=== PATIENT | male | born 1970 | race Caucasian/White ===

== ENCOUNTER 2023-08-12 12:01 | Inpatient (IN) | payer OTHER ==
--- NOTE | 2023-08-12 12:54 | ED ---
Lower Extremity Injury HPI - General Chief Complaint: Extremity Injury, Lower Stated Complaint: swelling-legs/groin Time Seen by Provider: 08/12/23 12:21 Source: patient, RN notes reviewed, old records reviewed Mode of arrival: ambulatory Limitations: no limitations - History of Present Illness Initial Comments: This is a 53-year-old male to the emergency department today for evaluation today. Patient Dese for evaluation regards to severe lower extremity edema swelling patient states that his scrotum is significantly swollen his abdomen is swollen arms are swollen. He states he symptoms are just been occurring for a few weeks now he does see his primary care doctor regularly and was told that his last lab testing was all normal. Patient denies any recent episodes of severe chest pain or shortness of breath but he does have exertional shortness of breath. Patient has remote history of smoking. But is no medical history takes no medications MD Complaint: other (bilateral lower Shorty swelling significant) - Related Data Home Medications Medication Instructions Recorded Confirmed Furosemide [Lasix] 20 mg PO DIRECTED 08/12/23 08/12/23 Previous Rx's Medication Instructions Recorded Albuterol Inhaler [Ventolin Hfa 2 puff INHALATION RT-QID PRN #1 12/24/22 Inhaler] each Sacubitril/Valsartan [Entresto 24 1 each PO BID #60 tablet 08/14/23 mg-26 mg Tablet] Cephalexin [Keflex] 500 mg PO Q8HR #21 cap 08/17/23 Furosemide [Lasix] 80 mg PO BID@0900,1600 #120 tab 08/17/23 Gabapentin [Neurontin] 300 mg PO HS #30 cap 08/17/23 SILVER sulfADIAZINE CREAM 1 applic TOPICAL BID each 08/17/23 [Silvadene Cream] Spironolactone [Aldactone] 25 mg PO DAILY #30 tab 08/17/23 carvediloL [Coreg] 6.25 mg PO BID-W/MEALS #60 tab 08/17/23 Allergies Allergy/AdvReac Type Severity Reaction Status Date / Time No Known Allergies Allergy Verified 08/12/23 12:14 Review of Systems ROS Statement: Those systems with pertinent positive or pertinent negative responses have been documented in the HPI. ROS Other: All systems not noted in ROS Statement are negative. Past Medical History Past Medical History: Hypertension, No Reported History History of Any Multi-Drug Resistant Organisms: None Reported Past Surgical History: Orthopedic Surgery Past Anesthesia/Blood Transfusion Reactions: No Reported Reaction Past Psychological History: No Psychological Hx Reported Smoking Status: Never smoker Past Alcohol Use History: None Reported Past Drug Use History: None Reported - Past Family History Father Additional Family Medical History / Comment(s): healthy, from head injury Mother Family Medical History: AFIB, COPD, Hypertension Additional Family Medical History / Comment(s): smoker General Exam Limitations: no limitations General appearance: alert, in no apparent distress, anxious Head exam: Present: atraumatic, normocephalic, normal inspection Eye exam: Present: normal appearance, PERRL, EOMI. Absent: scleral icterus, conjunctival injection, periorbital swelling ENT exam: Present: normal exam, mucous membranes moist Neck exam: Present: normal inspection. Absent: tenderness, meningismus, lymphadenopathy Respiratory exam: Present: normal lung sounds bilaterally. Absent: respiratory distress, wheezes, rales, rhonchi, stridor Cardiovascular Exam: Present: normal rhythm, tachycardia, normal heart sounds. Absent: systolic murmur, diastolic murmur, rubs, gallop, clicks GI/Abdominal exam: Present: soft, normal bowel sounds. Absent: distended, ten derness, guarding, rebound, rigid Extremities exam: Present: tenderness, normal capillary refill, pedal edema, calf tenderness, other (Lower extremity edema bilateral). Absent: joint swelling Back exam: Present: normal inspection Neurological exam: Present: alert, oriented X3, CN II-XII intact Psychiatric exam: Present: normal affect, normal mood Skin exam: Present: warm, dry, intact, normal color. Absent: rash Course Vital Signs 08/12/23 08/12/23 08/12/23 12:14 14:48 18:04 Temperature 98.9 F 97.6 F 98.3 F Pulse Rate 105 H 92 98 Pulse Rate [ Left] Respiratory 16 18 18 Rate Blood Pressure 160/90 165/121 146/99 Blood Pressure [Left Arm] O2 Sat by Pulse 95 96 98 Oximetry 08/12/23 08/12/23 08/12/23 18:45 19:47 21:14 Temperature 97.8 F Pulse Rate 101 H 102 H 96 Pulse Rate [ Left] Respiratory 18 19 19 Rate Blood Pressure 158/97 174/119 Blood Pressure [Left Arm] O2 Sat by Pulse 91 L Oximetry 08/13/23 08/13/23 08/13/23 03:41 05:16 06:14 Temperature Pulse Rate 92 78 84 Pulse Rate [ Left] Respiratory 19 19 19 Rate Blood Pressure 185/120 164/116 158/104 Blood Pressure [Left Arm] O2 Sat by Pulse 94 L 93 L 94 L Oximetry 08/13/23 08/13/23 08/13/23 11:06 11:10 13:15 Temperature 97.7 F 97.7 F Pulse Rate 78 80 92 Pulse Rate [ Left] Respiratory 20 22 Rate Blood Pressure 149/101 148/99 166/96 Blood Pressure [Left Arm] O2 Sat by Pulse 98 97 94 L Oximetry 08/13/23 08/13/23 08/13/23 15:00 15:16 15:53 Temperature 97.7 F 97.6 F Pulse Rate 84 Pulse Rate [ 87 Left] Respiratory 18 18 18 Rate Blood Pressure 164/102 Blood Pressure 162/109 [Left Arm] O2 Sat by Pulse 94 L 96 Oximetry - Reevaluation(s) Reevaluation #1: 08/12/23 15:13 Medical record is reviewed Reevaluation #2: 08/12/23 15:13 Patient symptoms are unchanged Reevaluation #3: 08/12/23 15:13 Patient informed results and questions answered Reevaluation #4: 08/12/23 15:14 Was pt. sent in by a medical professional or institution (, PA, COMMISSION SPECIALIST, urgent care, hospital, or long term...) When possible be specific @ -no Did you speak to anyone other than the patient for history (EMS, parent, family, police, friend...)? What history was obtained from this source @ -no Did you review nursing and triage notes (agree or disagree)? Why? @ -agree Are old charts reviewed (outside hosp., previous admission, EMS record, old EKG, old radiological studies, urgent care reports/EKG's, long term records)? Rep ort findings @ -yes Differential Diagnosis (chest pain, altered mental status, abdominal pain women, abdominal pain men, vaginal bleeding, weakness, fever, dyspnea, syncope, headache, dizziness, GI bleed, back pain, seizure, CVA, palpatations, mental health, musculoskeletal)? @ -prior EKG interpreted by me (3pts min.). @ -yes X-rays interpreted by me (1pt min.). @ -yes CT interpreted by me (1pt min.). @ -no U/S interpreted by me (1pt. min.). @ -no What testing was considered but not performed or refused? (CT, X-rays, U/S, labs)? Why? @ -none What meds were considered but not given or refused? Why? @ -none Did you discuss the management of the patient with other professionals (sarah altman i.e. , PA, COMMISSION SPECIALIST, lab, RT, psych nurse, social scientist, hand bindery assembly worker, teacher, geological technical officer, complex case manager)? Give summary @ -no Was smoking cessation discussed for >3mins.? @ -no Was critical care preformed (if so, how long)? @ -no Were there social determinants of health that impacted care today? How? (Homelessness, low income, unemployed, alcoholism, drug addiction, transportation, low edu. Level, literacy, decrease access to med. care, custodial, rehab)? @ -none Was there de-escalation of care discussed even if they declined (Discuss DNR or withdrawal of care, Hospice)? DNR status @ -no What co-morbidities impacted this encounter? (DM, HTN, Smoking, COPD, CAD, Cancer, CVA, ARF, Chemo, Hep., AIDS, mental health diagnosis, sleep apnea, morbid obesity)? @ -none Was patient admitted / discharged? Hospital course, mention meds given and route, prescriptions, significant lab abnormalities, going to OR and other pertinent info. @ - 53 male to the emergency department for evaluation patient presents today for evaluation of shortness of breath lower Shorty edema swelling and pain. Cam ordaz has bilateral extremity cellulitis significant CHF likely related to heartburn pulmonary edema. Admitted Undiagnosed new problem with uncertain prognosis? @ -no Drug Therapy requiring intensive monitoring for toxicity (Heparin, Nitro, Insulin, Cardizem)? @ -no Were any procedures done? @ -no Diagnosis/symptom? @ -CHF lower extremity edema pulmonary edema and cellulitis Acute, or Chronic, or Acute on Chronic? @ -Acute Uncomplicated (without systemic symptoms) or Complicated (systemic symptoms)? @ -Complicated Side effects of treatment? @ -no Exacerbation, Progression, or Severe Exacerbation? @ -exacerbation Poses a threat to life or bodily function? How? (Chest pain, USA, SD, pneumonia, PE, COPD, DKA, ARF, appy, cholecystitis, CVA, Diverticulitis, Homicidal, Suicidal, threat to staff... and all critical care pts) @ -no Reevaluation #5: 08/12/23 15:14 Differential Weakness: Hypoglycemia, shock, sepsis, hyponatremia, anemia, infection, SD, ETOH, adverse medicine reaction, overdose, stroke, this is not meant to be an all-inclusive list. Medical Decision Making - Medical Decision Making 53 male to the emergency department for evaluation patient presents today for evaluation of shortness of breath lower Shorty edema swelling and pain. Patient has bilateral extremity cellulitis significant CHF likely related to heartburn pulmonary edema. - Lab Data Result diagrams: 08/13/23 10:52 08/17/23 05:37 Lab Results 08/12/23 08/12/23 08/12/23 Range/Units 13:15 13:15 13:15 WBC 11.3 H (3.8-10.6) k/uL RBC 5.03 (4.30-5.90) m/uL Hgb 14.9 (13.0-17.5) gm/dL Hct 48.3 (39.0-53.0) % MCV 95.9 (80.0-100.0) fL MCH 29.6 (25.0-35.0) pg MCHC 30.8 L (31.0-37.0) g/dL RDW 16.1 H (11.5-15.5) % Plt Count 224 (150-450) k/uL MPV 8.8 Neutrophils % 83 % Lymphocytes % 9 % Monocytes % 4 % Eosinophils % 2 % Basophils % 0 % Neutrophils # 9.4 H (1.3-7.7) k/uL Lymphocytes # 1.0 (1.0-4.8) k/uL Monocytes # 0.5 (0-1.0) k/uL Eosinophils # 0.2 (0-0.7) k/uL Basophils # 0.0 (0-0.2) k/uL Hypochromasia Slight Anisocytosis Slight PT 11.0 (10.0-12.5) sec INR 1.0 (<1.2) APTT 24.4 (22.0-30.0) sec D-Dimer (<0.60) mg/L FEU Sodium 140 (137-145) mmol/L Potassium 4.9 (3.5-5.1) mmol/L Chloride 103 (98-107) mmol/L Carbon Dioxide 29 (22-30) mmol/L Anion Gap 8 mmol/L BUN 25 H (9-20) mg/dL Creatinine 1.01 (0.66-1.25) mg/dL Est GFR (CKD-EPI) (>=60) Est GFR (CKD-EPI)AfAm >90 (>60 ml/min/1.73 sqM) Est GFR (CKD-EPI)NonAf 84 (>60 ml/min/1.73 sqM) BUN/Creatinine Ratio (12.00-20.00) Ratio Glucose 111 H (74-99) mg/dL Estimated Ave Glu mg/dL mg/dL Hemoglobin A1c (<=6.0) % Calcium 8.9 (8.4-10.2) mg/dL Phosphorus 4.6 H (2.5-4.5) mg/dL Magnesium 2.2 (1.6-2.3) mg/dL Total Bilirubin 1.0 (0.2-1.3) mg/dL AST 59 (17-59) U/L ALT 49 (4-49) U/L Alkaline Phosphatase 87 (38-126) U/L Ammonia (<30) umol/L Troponin I (0.000-0.034) ng/mL NT-Pro-B Natriuret Pep 1760 pg/mL Total Protein 7.1 (6.3-8.2) g/dL Albumin 3.7 (3.5-5.0) g/dL Globulin (1.6-3.3) d/dL Albumin/Globulin Ratio (1.60-3.17) Ratio Lipase 60 (23-300) U/L TSH 1.460 (0.465-4.680) mIU/L Urine Color Urine Appearance (Clear) Urine pH (5.0-8.0) Ur Specific [place] (1.001-1.035) Urine Protein (Negative) Urine Glucose (UA) (Negative) Urine Ketones (Negative) Urine Blood (Negative) Urine Nitrite (Negative) Urine Bilirubin (Negative) Urine Urobilinogen (<2.0) mg/dL Ur Leukocyte Esterase (Negative) Urine RBC (0-5) /hpf Urine WBC (0-5) /hpf Ur Squamous Epith Cells (0-4) /hpf Urine Mucus (None) /hpf 08/12/23 08/12/23 08/12/23 Range/Units 13:15 13:15 16:48 WBC (3.8-10.6) k/uL RBC (4.30-5.90) m/uL Hgb (13.0-17.5) gm/dL Hct (39.0-53.0) % MCV (80.0-100.0) fL MCH (25.0-35.0) pg MCHC (31.0-37.0) g/dL RDW (11.5-15.5) % Plt Count (150-450) k/uL MPV Neutrophils % % Lymphocytes % % Monocytes % % Eosinophils % % Basophils % % Neutrophils # (1.3-7.7) k/uL Lymphocytes # (1.0-4.8) k/uL Monocytes # (0-1.0) k/uL Eosinophils # (0-0.7) k/uL Basophils # (0-0.2) k/uL Hypochromasia Anisocytosis PT (10.0-12.5) sec INR (<1.2) APTT (22.0-30.0) sec D-Dimer (<0.60) mg/L FEU Sodium (137-145) mmol/L Potassium (3.5-5.1) mmol/L Chloride (98-107) mmol/L Carbon Dioxide (22-30) mmol/L Anion Gap mmol/L BUN (9-20) mg/dL Creatinine (0.66-1.25) mg/dL Est GFR (CKD-EPI) (>=60) Est GFR (CKD-EPI)AfAm (>60 ml/min/1.73 sqM) Est GFR (CKD-EPI)NonAf (>60 ml/min/1.73 sqM) BUN/Creatinine Ratio (12.00-20.00) Ratio Glucose (74-99) mg/dL Estimated Ave Glu mg/dL mg/dL Hemoglobin A1c (<=6.0) % Calcium (8.4-10.2) mg/dL Phosphorus (2.5-4.5) mg/dL Magnesium (1.6-2.3) mg/dL Total Bilirubin (0.2-1.3) mg/dL AST (17-59) U/L ALT (4-49) U/L Alkaline Phosphatase (38-126) U/L Ammonia <9 (<30) umol/L Troponin I 0.020 0.017 (0.000-0.034) ng/mL NT-Pro-B Natriuret Pep pg/mL Total Protein (6.3-8.2) g/dL Albumin (3.5-5.0) g/dL Globulin (1.6-3.3) d/dL Albumin/Globulin Ratio (1.60-3.17) Ratio Lipase (23-300) U/L TSH (0.465-4.680) mIU/L Urine Color Urine Appearance (Clear) Urine pH (5.0-8.0) Ur Specific [place] (1.001-1.035) Urine Protein (Negative) Urine Glucose (UA) (Negative) Urine Ketones (Negative) Urine Blood (Negative) Urine Nitrite (Negative) Urine Bilirubin (Negative) Urine Urobilinogen (<2.0) mg/dL Ur Leukocyte Esterase (Negative) Urine RBC (0-5) /hpf Urine WBC (0-5) /hpf Ur Squamous Epith Cells (0-4) /hpf Urine Mucus (None) /hpf 08/12/23 08/12/23 08/13/23 Range/Units 17:02 21:16 10:52 WBC 9.5 (3.8-10.6) k/uL RBC 5.08 (4.30-5.90) m/uL Hgb 15.2 (13.0-17.5) gm/dL Hct 48.8 (39.0-53.0) % MCV 96.1 (80.0-100.0) fL MCH 30.0 (25.0-35.0) pg MCHC 31.2 (31.0-37.0) g/dL RDW 16.1 H (11.5-15.5) % Plt Count 233 (150-450) k/uL MPV 8.6 Neutrophils % 80 % Lymphocytes % 11 % Monocytes % 6 % Eosinophils % 1 % Basophils % 1 % Neutrophils # 7.5 (1.3-7.7) k/uL Lymphocytes # 1.1 (1.0-4.8) k/uL Monocytes # 0.6 (0-1.0) k/uL Eosinophils # 0.1 (0-0.7) k/uL Basophils # 0.0 (0-0.2) k/uL Hypochromasia Slight Anisocytosis Slight PT (10.0-12.5) sec INR (<1.2) APTT (22.0-30.0) sec D-Dimer (<0.60) mg/L FEU Sodium (137-145) mmol/L Potassium (3.5-5.1) mmol/L Chloride (98-107) mmol/L Carbon Dioxide (22-30) mmol/L Anion Gap mmol/L BUN (9-20) mg/dL Creatinine (0.66-1.25) mg/dL Est GFR (CKD-EPI) (>=60) Est GFR (CKD-EPI)AfAm (>60 ml/min/1.73 sqM) Est GFR (CKD-EPI)NonAf (>60 ml/min/1.73 sqM) BUN/Creatinine Ratio (12.00-20.00) Ratio Glucose (74-99) mg/dL Estimated Ave Glu mg/dL mg/dL Hemoglobin A1c (<=6.0) % Calcium (8.4-10.2) mg/dL Phosphorus (2.5-4.5) mg/dL Magnesium (1.6-2.3) mg/dL Total Bilirubin (0.2-1.3) mg/dL AST (17-59) U/L ALT (4-49) U/L Alkaline Phosphatase (38-126) U/L Ammonia (<30) umol/L Troponin I 0.019 (0.000-0.034) ng/mL NT-Pro-B Natriuret Pep pg/mL Total Protein (6.3-8.2) g/dL Albumin (3.5-5.0) g/dL Globulin (1.6-3.3) d/dL Albumin/Globulin Ratio (1.60-3.17) Ratio Lipase (23-300) U/L TSH (0.465-4.680) mIU/L Urine Color Light Yellow Urine Appearance Clear (Clear) Urine pH 5.0 (5.0-8.0) Ur Specific [place] 1.018 (1.001-1.035) Urine Protein 1+ H (Negative) Urine Glucose (UA) Negative (Negative) Urine Ketones Negative (Negative) Urine Blood Negative (Negative) Urine Nitrite Negative (Negative) Urine Bilirubin Negative (Negative) Urine Urobilinogen <2.0 (<2.0) mg/dL Ur Leukocyte Esterase Negative (Negative) Urine RBC 1 (0-5) /hpf Urine WBC 4 (0-5) /hpf Ur Squamous Epith Cells <1 (0-4) /hpf Urine Mucus Rare H (None) /hpf 08/13/23 08/13/23 08/13/23 Range/Units 10:52 10:52 10:52 WBC (3.8-10.6) k/uL RBC (4.30-5.90) m/uL Hgb (13.0-17.5) gm/dL Hct (39.0-53.0) % MCV (80.0-100.0) fL MCH (25.0-35.0) pg MCHC (31.0-37.0) g/dL RDW (11.5-15.5) % Plt Count (150-450) k/uL MPV Neutrophils % % Lymphocytes % % Monocytes % % Eosinophils % % Basophils % % Neutrophils # (1.3-7.7) k/uL Lymphocytes # (1.0-4.8) k/uL Monocytes # (0-1.0) k/uL Eosinophils # (0-0.7) k/uL Basophils # (0-0.2) k/uL Hypochromasia Anisocytosis PT (10.0-12.5) sec INR (<1.2) APTT (22.0-30.0) sec D-Dimer 0.65 H (<0.60) mg/L FEU Sodium 141 (137-145) mmol/L Potassium 4.1 (3.5-5.1) mmol/L Chloride 98 (98-107) mmol/L Carbon Dioxide 33.1 H (22-30) mmol/L Anion Gap 9.90 mmol/L BUN 19.0 (9-20) mg/dL Creatinine 1.1 (0.66-1.25) mg/dL Est GFR (CKD-EPI) 80 (>=60) Est GFR (CKD-EPI)AfAm (>60 ml/min/1.73 sqM) Est GFR (CKD-EPI)NonAf (>60 ml/min/1.73 sqM) BUN/Creatinine Ratio 17.27 (12.00-20.00) Ratio Glucose 109 (74-99) mg/dL Estimated Ave Glu mg/dL 137 mg/dL Hemoglobin A1c 6.4 H (<=6.0) % Calcium 9.1 (8.4-10.2) mg/dL Phosphorus 4.1 (2.5-4.5) mg/dL Magnesium 2.2 (1.6-2.3) mg/dL Total Bilirubin 0.7 (0.2-1.3) mg/dL AST 25 (17-59) U/L ALT 37 (4-49) U/L Alkaline Phosphatase 78 (38-126) U/L Ammonia (<30) umol/L Troponin I (0.000-0.034) ng/mL NT-Pro-B Natriuret Pep pg/mL Total Protein 6.7 (6.3-8.2) g/dL Albumin 3.9 (3.5-5.0) g/dL Globulin 2.8 (1.6-3.3) d/dL Albumin/Globulin Ratio 1.39 L (1.60-3.17) Ratio Lipase (23-300) U/L TSH (0.465-4.680) mIU/L Urine Color Urine Appearance (Clear) Urine pH (5.0-8.0) Ur Specific [place] (1.001-1.035) Urine Protein (Negative) Urine Glucose (UA) (Negative) Urine Ketones (Negative) Urine Blood (Negative) Urine Nitrite (Negative) Urine Bilirubin (Negative) Urine Urobilinogen (<2.0) mg/dL Ur Leukocyte Esterase (Negative) Urine RBC (0-5) /hpf Urine WBC (0-5) /hpf Ur Squamous Epith Cells (0-4) /hpf Urine Mucus (None) /hpf - EKG Data -: EKG Interpreted by Me (EKG is sinus a 4 NE 140 QRS 110 QTc 447) - Radiology Data Radiology results: report reviewed (Chest x-ray positive for pulmonary edema), image reviewed Disposition Clinical Impression: CHF (congestive heart failure), Bilateral lower extremity edema, Bilateral lower leg cellulitis Disposition: ADMITTED IP TO THIS HOSP Is patient prescribed a controlled substance at d/c from ED?: No Time of Disposition: 15:15
[2023-08-12 13:28] LABS: Anisocytosis Slight; Basophils % (A) 0 %; Eosinophils # (A) 0.2 k/uL (0-0.7); Eosinophils % (A) 2 %; HCT 48.3 % (39.0-53.0); HGB 14.9 gm/dL (13.0-17.5); Hypochromasia Slight; Lymphocytes % (A) 9 %; MCH 29.6 pg (25.0-35.0); MCHC 30.8 g/dL (31.0-37.0); MCV 95.9 fL (80.0-100.0); Mean Platelet Volume 8.8; Monocytes # (A) 0.5 k/uL (0-1.0); Monocytes % (A) 4 %; Neutrophils # (A) 9.4 k/uL (1.3-7.7); Neutrophils % (A) 83 %; Platelet Count 224 k/uL (150-450); RBC 5.03 m/uL (4.30-5.90); RDW 16.1 % (11.5-15.5); WBC 11.3 k/uL (3.8-10.6)
[2023-08-12 13:40] LABS: Partial Thromboplastin Time 24.4 sec (22.0-30.0)
[2023-08-12 13:41] LABS: ALT 49 U/L (4-49); AST 59 U/L (17-59); African American GFR (CKD) >90 (>60 ml/min/1.73 sqM); Albumin 3.7 g/dL (3.5-5.0); Alkaline Phosphatase 87 U/L (38-126); Anion Gap 8 mmol/L; Blood Urea Nitrogen 25 mg/dL (9-20); Calcium 8.9 mg/dL (8.4-10.2); Carbon Dioxide 29 mmol/L (22-30); Chloride 103 mmol/L (98-107); Glucose 111 mg/dL (74-99); Lipase 60 U/L (23-300); Magnesium 2.2 mg/dL (1.6-2.3); Non-African American GFR(CKD) 84 (>60 ml/min/1.73 sqM); Phosphorus 4.6 mg/dL (2.5-4.5); Sodium 140 mmol/L (137-145); Total Protein 7.1 g/dL (6.3-8.2)
[2023-08-12 13:43] LABS: Potassium 4.9 mmol/L (3.5-5.1)
[2023-08-12 13:48] LABS: NT-Pro-B-Type Natriuretic Pept 1760 pg/mL
--- NOTE | 2023-08-12 14:06 | XR ---
EXAMINATION TYPE: XR chest 2V DATE OF EXAM: 08/12/2023 1:56 PM COMPARISON: Chest radiographs from 02/27/2023 TECHNIQUE: XR chest 2V Frontal and lateral views of the chest. CLINICAL INDICATION:Male, 53 years old with history of weak; FINDINGS: Lungs/Pleura: There is no evidence of pleural effusion, focal consolidation, or pneumothorax. Persis tent interstitial lung markings again scattered throughout the lungs Heart/mediastinum: Cardiomediastinal silhouette is prominent in size. Musculoskeletal: No acute osseous pathology. IMPRESSION: Similar persistent interstitial prominent lung markings which may represent pulmonary fibrosis versus atypical pneumonia versus edema.
[2023-08-12] MEDS ORDERED: MORPHINE SULFATE 4 MG/ML SYRINGE IV PRN (14:43)
[2023-08-12] MEDS ORDERED: MORPHINE SULFATE 4 MG/ML SYRINGE IVP STA (14:43)
--- NOTE | 2023-08-12 15:00 | US ---
EXAMINATION TYPE: US venous doppler duplex LE DATE OF EXAM: 08/12/2023 2:46 PM COMPARISON: NONE CLINICAL INDICATION: `, 53 years old with history of weak; Swollen, red, painful legs SIDE PERFORMED: Bilateral TECHNIQUE: The lower extremity deep venous system is examined utilizing real time linear array sonog thomas with graded compression, doppler sonography and color-flow sonography. VESSELS IMAGED: Common Femoral Vein Deep Femoral Vein Greater Saphenous Vein * Femoral Vein Popliteal Vein Small Saphenous Vein * Proximal Calf Veins (* superficial vessels) Grayscale, color doppler, spectral doppler imaging performed of the deep veins of the lower extremiti es. There is normal flow, compressibility, vascular waveforms. Right Leg: Negative for DVT Left Leg: Negative for DVT IMPRESSION: No deep venous thrombosis of the bilateral lower extremities.
[2023-08-12] MEDS ORDERED: FUROSEMIDE 10 MG/ML 4 ML VIAL IV STA (15:08)
[2023-08-12] MEDS ORDERED: ONDANSETRON 4 MG/2 ML VIAL IVP PRN (15:08)
[2023-08-12] MEDS ORDERED: NALOXONE 0.4 MG/ML 1 ML VIAL IV PRN (15:08)
[2023-08-12 17:40] LABS: Appearance,Urine Clear (Clear); Bilirubin,Urine Negative (Negative); Blood,Urine Negative (Negative); Color,Urine Light Yellow; Glucose,Urine (UA) Negative (Negative); Ketones,Urine Negative (Negative); Leukocyte Esterase,Urine Negative (Negative); Mucus,Urine Rare /hpf; Nitrite,Urine Negative (Negative); Protein,Urine 1+ (Negative); RBC,Urine 1 /hpf (0-5); Specific Gravity,Urine 1.018 (1.001-1.035); Squamous Epithelial Cell,Urine <1 /hpf (0-4); Urobilinogen,Urine <2.0 mg/dL (<2.0); WBC,Urine 4 /hpf (0-5)
[2023-08-12] MEDS: FUROSEMIDE 10 MG/ML 4 ML VIAL IV SCH (21:07)
[2023-08-12] MEDS ORDERED: ALBUTEROL NEBULIZED 2.5 MG/3 ML INHALATION PRN (21:52)
[2023-08-12] MEDS: ENOXAPARIN 40 MG/0.4 ML SYRINGE SQ SCH (22:42)
[2023-08-13] MEDS: METOPROLOL TARTRATE 50 MG TAB PO SCH ×3 (03:54→20:41)
[2023-08-13] MEDS: FUROSEMIDE 10 MG/ML 4 ML VIAL IV SCH (09:05)
[2023-08-13] MEDS: ENOXAPARIN 40 MG/0.4 ML SYRINGE SQ SCH ×2 (09:06→09:07)
[2023-08-13 11:15] LABS: Anisocytosis Slight; Basophils % (A) 1 %; Eosinophils # (A) 0.1 k/uL (0-0.7); Eosinophils % (A) 1 %; HCT 48.8 % (39.0-53.0); HGB 15.2 gm/dL (13.0-17.5); Hypochromasia Slight; Lymphocytes # (A) 1.1 k/uL (1.0-4.8); Lymphocytes % (A) 11 %; MCHC 31.2 g/dL (31.0-37.0); MCV 96.1 fL (80.0-100.0); Mean Platelet Volume 8.6; Monocytes # (A) 0.6 k/uL (0-1.0); Monocytes % (A) 6 %; Neutrophils # (A) 7.5 k/uL (1.3-7.7); Neutrophils % (A) 80 %; Platelet Count 233 k/uL (150-450); RBC 5.08 m/uL (4.30-5.90); RDW 16.1 % (11.5-15.5); WBC 9.5 k/uL (3.8-10.6)
[2023-08-13] MEDS ORDERED: CALCIUM CARBONATE 500 MG CHEWABLE PO PRN (12:53)
[2023-08-13] MEDS ORDERED: LACTULOSE 20 GM/30 ML CUP PO PRN (12:53)
[2023-08-13] MEDS ORDERED: MELATONIN 3 MG TABLET PO PRN (12:53)
[2023-08-13] MEDS ORDERED: ALPRAZolam 0.25 MG TAB PO PRN (12:53)
[2023-08-13] MEDS ORDERED: NAPROXEN 250 MG TAB PO SCH (13:00)
[2023-08-13] MEDS: GABAPENTIN 100 MG CAP PO SCH ×3 (13:07→20:41)
--- NOTE | 2023-08-13 13:14 | CA ---
Transthoracic Echo Report Name: Neftaly Messina Age: 53 Gender: M : 1970 Exam Date: 08/13/2023 07:53 Exam Location: [facility] Ht (in): 72 Wt (lb): 330 Ordering Physician: Kyle Fisher DO Attending/Referring Phys: [id number], Natalia [employer] Light Assembler Les Sanchez Procedure CPT: Indications: chf Cardiac Hx: Technical Quality: Fair Contrast 1: Total Dose (mL): Contrast 2: Total Dose (mL): MEASUREMENTS (Male / Female) Normal Values 2D ECHO LV Diastolic Diameter PLAX 5.4 cm 4.2 - 5.9 / 3.9 - 5.3 cm LV Systolic Diameter PLAX 4.7 cm IVS Diastolic Thickness 1.7 cm 0.6 - 1.0 / 0.6 - 0.9 cm LVPW Diastolic Thickness 1.3 cm 0.6 - 1.0 / 0.6 - 0.9 cm LV Relative Wall Thickness 0.6 RV Internal Dim ED PLAX 3.8 cm LVOT Diameter 2.4 cm Aortic Root Diameter 2.6 cm LA Systolic Diameter LX 3.3 cm 3.0 - 4.0 / 2.7 - 3.8 cm LV Diastolic Volume MOD BP 90.2 cm??? 67 - 155 / 56 - 104 cm??? LV Systolic Volume MOD BP 53.2 cm??? - / 19 - 49 cm??? LV Ejection Fraction MOD BP 41.1 % >= 55 % LV Cardiac Index MOD BP 1205.2 cm???/min???m??? LV Diastolic Volume MOD 4C 83.0 cm??? LV Systolic Volume MOD 4C 42.6 cm??? LV Ejection Fraction MOD 4C 48.7 % LV Cardiac Index MOD 4C 1313.8 cm???/min???m??? LV Diastolic Length 4C 8.0 cm LV Systolic Length 4C 7.7 cm LV Diastolic Volume MOD 2C 97.8 cm??? LV Systolic Volume MOD 2C 61.7 cm??? LV Ejection Fraction MOD 2C 36.9 % LV Cardiac Index MOD 2C 1172.3 cm???/min???m??? LV Diastolic Length 2C 8.0 cm LV Systolic Length 2C 7.0 cm LA Volume 53.4 cm??? 18 - 58 / 22 - 52 cm??? LA Volume Index 18.9 cm???/m??? 16 - 28 cm???/m??? Ascending Aorta Diameter 3.0 cm DOPPLER AV Peak Velocity 108.9 cm/s AV Peak Gradient 4.7 mmHg LVOT Peak Velocity 64.1 cm/s LVOT Peak Gradient 1.6 mmHg LVOT Velocity Time Integral 12.0 cm LVOT Stroke Volume 54.4 cm??? LVOT Stroke Volume Index 20.6 ml/m??? LVOT Cardiac Index 1768.9 cm???/min???m??? AV Area Cont Eq pk 2.7 cm??? MV Peak Velocity 89.6 cm/s MV Peak Gradient 3.2 mmHg MV Mean Velocity 42.0 cm/s MV Mean Gradient 0.9 mmHg MV Velocity Time Integral 26.6 cm Mitral E Point Velocity 73.6 cm/s Mitral A Point Velocity 58.0 cm/s Mitral E to A Ratio 1.3 MV Deceleration Time 166.0 ms MV E' Velocity 4.5 cm/s Mitral E to MV E' Ratio 16.2 TR Peak Velocity 311.6 cm/s TR Peak Gradient 38.8 mmHg Right Ventricular Systolic Press 43.8 mmHg PV Peak Velocity 84.4 cm/s PV Peak Gradient 2.8 mmHg FINDINGS Left Ventricle Normal LV size. Moderate concentric LVH. Left ventricular ejection fraction is estimated at _25-30 %. Right Ventricle Normal right ventricular size. RVSP= 44mmHg. Right Atrium Normal right atrial size. Left Atrium Normal left atrial size. LA volume index= 20ml/m2 Mitral Valve Structurally normal mitral valve. Aortic Valve Trileaflet aortic valve. Tricuspid Valve Structurally normal tricuspid valve. Mild to moderate TR. Pulmonic Valve Pulmonic valve not well visualized. No pulmonic regurgitation. Pericardium Normal pericardium. Aorta Normal size aortic root and proximal ascending aorta. CONCLUSIONS Severe LV dysfunction with increased LV mass Dilated IVC Previewed by: Dr. Aki Nagel MD (Electronically Signed) Final Date: 13 August 2023 13:13
--- NOTE | 2023-08-13 14:00 | CT ---
EXAMINATION TYPE: CT abdomen pelvis w con CT DLP: 3364.4 mGycm, Automated exposure control for dose reduction was used. DATE OF EXAM: 08/13/2023 1:56 PM COMPARISON: None CLINICAL INDICATION:Male, 53 years old with history of LE edema/abd distension; abdominal pain, diste ntion TECHNIQUE: Standard CT of the abdomen and pelvis following the administration of 100 cc of Isovue 3 00 IV contrast material. Coronal and sagittal reformats were performed. FINDINGS: LOWER CHEST: Please see dedicated CT chest for findings ABDOMEN LIVER: Diffusely hypoattenuating parenchyma. GALLBLADDER AND BILE DUCTS: Unremarkable. PANCREAS: Unremarkable. SPLEEN: Unremarkable. ADRENAL GLANDS: Unremarkable. KIDNEYS AND URETERS: No evidence of hydronephrosis or renal calculus. The kidneys enhance symmetrical ly. Contrast is demonstrated within both collecting systems on the delayed phase. PELVIS BLADDER: Under distended with perivesicular fat stranding. REPRODUCTIVE: Unremarkable. ABDOMEN & PELVIS STOMACH AND BOWEL: Stomach and duodenum are unremarkable. No evidence of bowel obstruction. No focal bowel wall thickening or surrounding inflammatory changes. The appendix is not visualized. PERITONEUM: No evidence of pneumoperitoneum or free fluid. VASCULATURE: No evidence of aortic aneurysm. Few pelvic phleboliths. MUSCULOSKELETAL: No acute osseous abnormalities. Mild degenerative disease most pronounced at L5-S1. LYMPH NODES: No gross evidence for lymphadenopathy. SOFT TISSUE/ABDOMINAL WALL: Diffuse anasarca. Small to moderate-sized fat filled hernia. Scrotal julio a identified. IMPRESSION: 1. Under distended urinary bladder with perivesicular fat stranding. Correlate with urinalysis for cy stitis. 2. Mild diffuse anasarca. 3. Hepatic steatosis.
--- NOTE | 2023-08-13 14:07 | CT ---
INDICATION: Patient age:Male; 53 years old; Reason for study: poss pulm fibrosis; PHH. COMPARISON: CTA chest 12/21/2022 TECHNIQUE: Multiple thin axial images were obtained through the chest at selected intervals. Prone and supine in spiratory along with supine expiratory images were submitted for review. Please note that due to inte rval acquisition images as defined by high-resolution CT protocol the entire lung parenchyma is not e valuated, therefore small nodular densities may not be visualized. Evaluation of vascular structures , viscera and lymphatics is limited due to lack of intravenous contrast administration. One or more C T dose reduction strategies were utilized during this examination. Total DLP 2424.2 mGycm. FINDINGS: LUNGS: There is no evidence of interstitial thickening, , honeycombing or architectural distortion in the lungs. No bronchiectasis. Mild centrilobular emphysematous changes. Diffuse mosaic groundglass a ttenuation which worsens with expiration. No acute area of infiltrative or consolidative change. LARGE AIRWAYS: Central airways are patent. No dynamic airway collapse on expiratory imaging. PLEURA: No pleural effusion or thickening. HEART AND PERICARDIUM: Heart is normal in size. There is no pericardial effusion. MEDIASTINUM AND DILSHAD: Mildly enlarged right paratracheal lymph node measuring 1.5 cm. VESSELS: The thoracic aorta is normal in course and caliber. CHEST WALL AND DIAPHRAGM: Normal. LOWER NECK: Normal. UPPER ABDOMEN: Please refer to dedicated CT abdomen pelvis of same day for findings. MUSCULOSKELETAL: No acute fracture. IMPRESSION: 1. No evidence for pulmonary fibrosis. 2. Diffuse mosaic groundglass attenuation which worsens with expiration. This suggests air trapping w ith etiologies including COPD, hypersensitivity pneumonitis, asthma, versus other. 3. Mild COPD changes. 4. Stable nonspecific mildly enlarged right paratracheal lymph node, could be reactive.
--- NOTE | 2023-08-13 14:46 | US ---
EXAMINATION TYPE: US abdomen limited DATE OF EXAM: 08/13/2023 COMPARISON: CLINICAL INDICATION: Male, 53 years old with history of ascites. eval liver; Portable ultrasound exam TECHNIQUE: Multiple sonographic images of the right upper quadrant are obtained. FINDINGS: EXAM MEASUREMENTS: Liver Length: 16.0 cm Gallbladder Wall: 0.2 cm CBD: 0.4 cm Right Kidney: 11.3 x 6.3 x 5.9 cm RECOVERER NOTES:Very limited due to patient body habitus Pancreas: Limited due to gas. Echogenic in appearance. Liver: Scanned through ribs. Limited due to gas. No prominent lesions visualized at time of scan. Gallbladder: Limited evaluation. No prominent stones seen. Evidence for sonographic Mills's sign: neg CBD: wnl Right Kidney: No prominent hydronephrosis or masses seen Right and left lateral abdomen scanned with no ascites visualized at time of scan IMPRESSION: There is mild fatty infiltration of the liver.
[2023-08-13 16:35] LABS: ALT 37 U/L (10-49); AST 25 U/L (14-35); Albumin 3.9 d/dL (3.8-4.9); Albumin/Globulin Ratio 1.39 Ratio (1.60-3.17); Alkaline Phosphatase 78 U/L (41-126); BUN/Creat Ratio 17.27 Ratio (12.00-20.00); Calcium 9.1 mg/dL (8.7-10.3); Carbon Dioxide 33.1 mmol/L (21.6-31.8); Chloride 98 mmol/L (96-109); Globulin 2.8 d/dL (1.6-3.3); Glucose 109 mg/dL (70-110); Magnesium 2.2 mg/dL (1.5-2.4); Phosphorus 4.1 mg/dL (2.4-5.1); Potassium 4.1 mmol/L (3.5-5.5); Sodium 141 mmol/L (135-145); Total Bilirubin 0.7 mg/dL (0.3-1.2); Total Protein 6.7 d/dL (6.2-8.2)
--- NOTE | 2023-08-13 17:15 | P.CRDCN ---
History of Present Illness History of present illness: This is Dr. Nagel dictating an H/P on this patient The patient was interviewed and examined IMPRESSION / ASSESSMENT: Bilateral lower extremity edema with redness/cellulitis Scrotal edema Denies any chest discomfort shortness of breath Hypertension 2 EKG shows sinus mechanism with T-wave inversions V4 through V6 and in the inferior leads consistent with strain pattern Likely hypertensive heart disease with obesity PLAN: 2-D echo and Doppler study to assess cardiac structure and function Continue IV Lasix and treat cellulitis Treat hypertension. Agree with losartan. Maximize dose HPI Patient presented with worsening lower extremity edema for one month with worsening redness and cellulitis and scrotal edema ROS: No fever chills or rigors, no cough, phlegm or expectoration, no nausea, vomiting or diarrhea, no hematuria, dysuria, no musculoskeletal complaints, no strokes or seizures, no skin lesions. EXAMINATION: Elevated blood pressure readings Pulse rate in the 80s afebrile Breath sounds are reduced bilaterally Heart sounds are normal REVIEW OF LABS, ECG & MEDICAL DATA White count at the upper limits of normal Hemoglobin normal Minimally abnormal d-dimer Normal electrolytes normal renal function Normal liver function Normal cardiac enzymes Normal BMP Past Medical History Past Medical History: Hypertension, No Reported History History of Any Multi-Drug Resistant Organisms: None Reported Past Surgical History: Orthopedic Surgery Past Anesthesia/Blood Transfusion Reactions: No Reported Reaction Past Psychological History: No Psychological Hx Reported Smoking Status: Former smoker Past Alcohol Use History: None Reported Past Drug Use History: None Reported - Past Family History Father Additional Family Medical History / Comment(s): healthy, from head injury Mother Family Medical History: AFIB, COPD, Hypertension Additional Family Medical History / Comment(s): smoker Medications and Allergies Home Medications Medication Instructions Recorded Confirmed Type Albuterol Inhaler [Ventolin Hfa 2 puff INHALATION RT-QID PRN #1 12/24/22 08/12/23 Rx Inhaler] each Furosemide [Lasix] 20 mg PO DIRECTED 08/12/23 08/12/23 History Allergies Allergy/AdvReac Type Severity Reaction Status Date / Time No Known Allergies Allergy Verified 08/12/23 12:14 Physical Exam Vitals: Vital Signs Temp Pulse Pulse Resp BP BP Pulse Ox 08/13/23 15:53 97.6 F 84 18 164/102 96 08/13/23 15:16 18 08/13/23 15:00 97.7 F 87 18 162/109 94 L 08/13/23 13:15 97.7 F 92 22 166/96 94 L 08/13/23 11:10 80 148/99 97 08/13/23 11:06 97.7 F 78 20 149/101 98 08/13/23 06:14 84 19 158/104 94 L 08/13/23 05:16 78 19 164/116 93 L 08/13/23 03:41 92 19 185/120 94 L 08/12/23 21:14 96 19 08/12/23 19:47 102 H 19 174/119 08/12/23 18:45 97.8 F 101 H 18 158/97 91 L 08/12/23 18:04 98.3 F 98 18 146/99 98 Intake and Output 08/13/23 08/13/23 08/13/23 06:59 14:59 22:59 Other: Weight 149.685 kg Results 08/13/23 10:52 08/13/23 10:52 Cardiac Enzymes 08/12/23 08/12/23 08/13/23 Range/Units 16:48 21:16 10:52 AST 25 (14-35) U/L Troponin I 0.017 0.019 (0.000-0.034) ng/mL CBC 08/13/23 Range/Units 10:52 WBC 9.5 (3.8-10.6) k/uL RBC 5.08 (4.30-5.90) m/uL Hgb 15.2 (13.0-17.5) gm/dL Hct 48.8 (39.0-53.0) % Plt Count 233 (150-450) k/uL Comprehensive Metabolic Panel 08/13/23 Range/Units 10:52 Sodium 141 (135-145) mmol/L Potassium 4.1 (3.5-5.5) mmol/L Chloride 98 (96-109) mmol/L Carbon Dioxide 33.1 H (21.6-31.8) mmol/L BUN 19.0 (9.0-27.0) mg/dL Creatinine 1.1 (0.6-1.5) mg/dL Glucose 109 (70-110) mg/dL Calcium 9.1 (8.7-10.3) mg/dL AST 25 (14-35) U/L ALT 37 (10-49) U/L Alkaline Phosphatase 78 (41-126) U/L Total Protein 6.7 (6.2-8.2) d/dL Albumin 3.9 (3.8-4.9) d/dL Current Medications Generic Name Dose Route Start Last Admin Trade Name Freq PRN Reason Stop Dose Admin Albuterol Sulfate 2.5 mg 08/12/23 21:52 Albuterol Nebulized 2.5 Mg/3 Ml INHALATION RT-QID PRN Shortness Of Breath Or Wheezing Alprazolam 0.25 mg 08/13/23 12:53 Alprazolam 0.25 Mg Tab PO Q6HR PRN Anxiety Calcium Carbonate/Glycine 1,000 mg 08/13/23 12:53 Calcium Carbonate 500 Mg Chewable PO Q4HR PRN Dyspepsia Enoxaparin Sodium 40 mg 08/12/23 22:00 08/13/23 09:07 Enoxaparin 40 Mg/0.4 Ml Syringe SQ Not Given DAILY MISAEL Gabapentin 100 mg 08/13/23 13:00 08/13/23 15:45 Gabapentin 100 Mg Cap PO 100 mg TID MISAEL Administration Furosemide 100 mg/ Sodium 100 mls @ 10 mls/hr 08/13/23 17:15 Chloride IV .Q10H MISAEL 10 MG/HR Lactulose 20 gm 08/13/23 12:53 Lactulose 20 Gm/30 Ml Cup PO DAILY PRN Constipation Melatonin 3 mg 08/13/23 12:53 Melatonin 3 Mg Tablet PO HS PRN Insomnia Metoprolol Tartrate 50 mg 08/13/23 03:50 08/13/23 09:05 Metoprolol Tartrate 50 Mg Tab PO 50 mg BID MISAEL Administration Naloxone HCl 0.2 mg 08/12/23 15:08 Naloxone 0.4 Mg/Ml 1 Ml Vial IV Q2M PRN Opioid Reversal Ondansetron HCl 4 mg 08/12/23 15:08 Ondansetron 4 Mg/2 Ml Vial IVP Q8HR PRN Nausea And Vomiting Silver Sulfadiazine 1 applic 08/13/23 21:00 Silver Sulfadiazine 1% Cream 25 Gm Tube TOPICAL BID MISAEL Protocol Spironolactone 25 mg 08/13/23 17:15 Spironolactone 25 Mg Tab PO DAILY MISAEL Intake and Output 08/13/23 08/13/23 08/13/23 06:59 14:59 22:59 Other: Weight 149.685 kg Patient Weight 08/14/23 06:59 Weight 149.685 kg 08/13/23 10:52 08/13/23 10:52
--- NOTE | 2023-08-13 17:16 | P.HPIM ---
History of Present Illness H&P Date: 08/13/23 Chief Complaint: Increasing edema This is a pleasant 53-year-old patient follows with, Dr. Chalo Talley. Patient presents with one month of increasing lower extremity edema. Extremity getting worse. Patient slowly started getting also short of breath. Also note abdomen to get distended. Lower extremity started seeping. Some redness lower extremity skin with pain. No chest pain. Patient did have a computed tomography scan of the chest in November when patient is admitted. He was told he has a noninfectious pneumonitis. Diagnoses according to him was unclear. 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 No smoking or alcohol. No recreational drugs. Physical examination: VITAL SIGNS: 98.9, 105, 16, 160/90, 95% room air GENERAL: BMI 44.8, sitting up a chair awake not in distress. EYES: Pupils equal. Conjunctiva normal. HEENT: External appearance of nose and ears normal, oral cavity grossly normal. NECK: JVD not raised; masses not palpable. HEART: First and second heart sounds are normal; edema present. LUNGS: Respiratory rate normal; decreased breath sound. ABDOMEN: Soft, distended nontender, liver spleen not palpable, no masses palpa ble. PSYCH: Alert and oriented x3; mood and affect normal. MUSCULOSKELETAL:No Clubbing/cyanosis;muscles-grossly intact NEUROLOGICAL: Cranial nerves grossly intact; no facial asymmetry, power and sensation grossly intact. Lower extremity: Bilateral edema. Redness. LYMPHATICS: No lymph nodes palpable in the axilla and neck INVESTIGATIONS, reviewed in the clinical context: August 13: White count 9.5 hemoglobin 15.2 platelets 233 potassium 4.1 creatinine 1.1 Troponin I 0.020, 0.017, 0.019 ProBNP 1760 TSH 1.4 UA: Protein 1+ EKG tracing personally reviewed by me-normal sinus rhythm. Nonspecific ST-T wave changes. Chest x-ray film personally reviewed by me-interstitial prominence Venous Doppler bilateral lower extremity: Negative for DVT 2-D echocardiogram: Moderate concentric LVH. EF 25-30%. [id number] TR. Computed tomography scan abdomen and pelvis: Mild diffuse anasarca. Hepatic steatosis. Hydralazine CT chest: Diffuse mosaic groundglass a deterioration. Abdominal ultrasound: Mild fatty infiltration of liver. Assessment and plan: -Acute congestive heart exacerbation from systolic dysfunction EF 25-30%. No prior history of CAD. Lasix drip at 10 mg an hour. Fluid restriction. Low-sodium diet. Aldactone 25 mg a day. Lopressor 50 mg twice a day. Would consider Entresto and Farsiga. Cardiac he consulted. -Secondary lower extremity cellulitis Silvadene cream with Kerlix and David wrap -Morbid obesity BMI 44.8 Weight loss measures -Hepatic steatosis -Painful peripheral neuropathy Neurontin -Abnormal CT chest Consult pulmonary -Full code Discussed with the patient. Given the complexity and severity of patient's condition expect the patient to be in the hospital at least for 2 overnights - Past Medical History Past Medical History: Hypertension, No Reported History History of Any Multi-Drug Resistant Organisms: None Reported Past Surgical History: Orthopedic Surgery Past Anesthesia/Blood Transfusion Reactions: No Reported Reaction Past Psychological History: No Psychological Hx Reported Smoking Status: Never smoker Past Alcohol Use History: None Reported Past Drug Use History: None Reported - Past Family History Father Additional Family Medical History / Comment(s): healthy, from head injury Mother Family Medical History: AFIB, COPD, Hypertension Additional Family Medical History / Comment(s): smoker Medications and Allergies Home Medications Medication Instructions Recorded Confirmed Type Albuterol Inhaler [Ventolin Hfa 2 puff INHALATION RT-QID PRN #1 12/24/22 08/12/23 Rx Inhaler] each Furosemide [Lasix] 20 mg PO DIRECTED 08/12/23 08/12/23 History Allergies Allergy/AdvReac Type Severity Reaction Status Date / Time No Known Allergies Allergy Verified 08/12/23 12:14 Physical Exam Vitals: Vital Signs Temp Pulse Resp BP Pulse Ox 08/13/23 06:14 84 19 158/104 94 L 08/13/23 05:16 78 19 164/116 93 L 08/13/23 03:41 92 19 185/120 94 L 08/12/23 21:14 96 19 08/12/23 19:47 102 H 19 174/119 08/12/23 18:45 97.8 F 101 H 18 158/97 91 L 08/12/23 18:04 98.3 F 98 18 146/99 98 08/12/23 14:48 97.6 F 92 18 165/121 96 08/12/23 12:14 98.9 F 105 H 16 160/90 95 Results CBC & Chem 7: 08/13/23 10:52 08/13/23 10:52 Labs: Abnormal Lab Results - Last 24 Hours (Table) 08/12/23 08/12/23 08/12/23 Range/Units 13:15 13:15 17:02 WBC 11.3 H (3.8-10.6) k/uL MCHC 30.8 L (31.0-37.0) g/dL RDW 16.1 H (11.5-15.5) % Neutrophils # 9.4 H (1.3-7.7) k/uL BUN 25 H (9-20) mg/dL Glucose 111 H (74-99) mg/dL Phosphorus 4.6 H (2.5-4.5) mg/dL Urine Protein 1+ H (Negative) Urine Mucus Rare H (None) /hpf
[2023-08-13] MEDS: SPIRONOLACTONE 25 MG TAB PO SCH (18:17)
[2023-08-13] MEDS: FUROSEMIDE 100 MG in SODIUM CHLORIDE 0.9% 90 ML IV SCH (18:18)
[2023-08-13] MEDS ORDERED: LOSARTAN 25 MG TAB PO SCH (21:00)
[2023-08-14] MEDS ORDERED: NAPROXEN 250 MG TAB PO STA (02:44)
[2023-08-14] MEDS: FUROSEMIDE 100 MG in SODIUM CHLORIDE 0.9% 90 ML IV SCH ×2 (06:20→15:13)
[2023-08-14 07:12] LABS: African American GFR (CKD) 83 (>60 ml/min/1.73 sqM); Anion Gap 7 mmol/L; Blood Urea Nitrogen 25 mg/dL (9-20); Calcium 8.6 mg/dL (8.4-10.2); Carbon Dioxide 34 mmol/L (22-30); Chloride 96 mmol/L (98-107); Glucose 115 mg/dL (74-99); Non-African American GFR(CKD) 72 (>60 ml/min/1.73 sqM); Sodium 137 mmol/L (137-145)
[2023-08-14] MEDS: SPIRONOLACTONE 25 MG TAB PO SCH (08:20)
[2023-08-14] MEDS: GABAPENTIN 100 MG CAP PO SCH ×3 (08:20→20:14)
[2023-08-14] MEDS: carvediloL 6.25 MG TAB PO SCH ×2 (08:56→18:25)
--- NOTE | 2023-08-14 10:55 | P.PN ---
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 Results reviewed with the patient. He states he has not had any problems with blood pressure in the past. He is currently on a Lasix drip continues to have lower extremity edema and erythema bilaterally. Patient complains of pain in the bilateral legs. Blood pressure readings remain elevated despite medication changes. Creatinine 1.16, potassium 4. EXAMINATION: Elevated blood pressure readings Pulse rate in the 80s afebrile Breath sounds are clear to auscultation bilaterally Heart sounds are normal 23 plus lower extremity edema with erythema REVIEW OF LABS, ECG & MEDICAL DATA White count at the upper limits of normal Hemoglobin normal Minimally abnormal d-dimer Normal electrolytes normal renal function Normal liver function Normal cardiac enzymes Normal BMP Nurse practitioner note has been reviewed, I agree with the documented findings and plan of care. Patient was seen and examined. Objective - Vital Signs Vital signs: Vital Signs Temp 97.4 F L 08/14/23 07:00 Pulse 98 08/14/23 07:00 Resp 15 08/14/23 07:00 BP 155/100 08/14/23 07:00 Pulse Ox 93 L 08/14/23 07:00 FiO2 Intake & Output 08/13/23 08/14/23 08/14/23 18:59 06:59 18:59 Intake Total 350 Output Total 1750 Balance -1400 Weight 149.685 kg Intake: Intake, IV Titration 100 Amount Furosemide 100 mg In 100 Sodium Chloride 0.9% 90 ml @ 10 MG/HR 10 mls/hr IV .Q10H [facility] Rx#: [id number] Oral 250 Output: Urine 1750 Other: Voiding Method Urinal - Labs CBC & Chem 7: 08/13/23 10:52 08/14/23 05:33 Labs: Abnormal Lab Results - Last 24 Hours (Table) 08/13/23 08/13/23 08/13/23 Range/Units 10:52 10:52 10:52 RDW 16.1 H (11.5-15.5) % D-Dimer 0.65 H (<0.60) mg/L FEU Chloride (98-107) mmol/L Carbon Dioxide 33.1 H (21.6-31.8) mmol/L BUN (9-20) mg/dL Glucose (74-99) mg/dL Albumin/Globulin Ratio 1.39 L (1.60-3.17) Ratio 08/14/23 Range/Units 05:33 RDW (11.5-15.5) % D-Dimer (<0.60) mg/L FEU Chloride 96 L (98-107) mmol/L Carbon Dioxide 34 H (21.6-31.8) mmol/L BUN 25 H (9-20) mg/dL Glucose 115 H (74-99) mg/dL Albumin/Globulin Ratio (1.60-3.17) Ratio Microbiology - Last 24 Hours (Table) 08/12/23 16:00 Blood Culture - Preliminary Blood 08/12/23 16:45 Blood Culture - Preliminary Blood
[2023-08-14] MEDS: ENOXAPARIN 40 MG/0.4 ML SYRINGE SQ SCH (11:00)
--- NOTE | 2023-08-14 17:19 | P.PN ---
Progress Note - Text Progress Note Date: 08/14/23 Chief Complaint: Increasing edema This is a pleasant 53-year-old patient follows with, Dr. Chalo Talley. Patient presents with one month of increasing lower extremity edema. Extremity getting worse. Patient slowly started getting also short of breath. Also note abdomen to get distended. Lower extremity started seeping. Some redness lower extremity skin with pain. No chest pain. Patient did have a computed tomography scan of the chest in November when patient is admitted. He was told he has a noninfectious pneumonitis. Diagnoses according to him was unclear. August 14: Admitted with acute CHF exacerbation. Low EF. Remains on IV Lasix drip. Strict I's and O's. Lower extremity cellulitis. Add IV Unasyn. Consult ID. Care was discussed with the patient. Being followed by cardiology. Active Medications Albuterol Sulfate (Albuterol Nebulized 2.5 Mg/3 Ml) 2.5 mg INHALATION RT-QID PRN PRN Reason: Shortness Of Breath Or Wheezing Alprazolam (Alprazolam 0.25 Mg Tab) 0.25 mg PO Q6HR PRN PRN Reason: Anxiety Calcium Carbonate/Glycine (Calcium Carbonate 500 Mg Chewable) 1,000 mg PO Q4HR PRN PRN Reason: Dyspepsia Carvedilol (Carvedilol 6.25 Mg Tab) 6.25 mg PO BID-W/MEALS [facility] Last Admin: 08/14/23 08:56 Dose: 6.25 mg Enoxaparin Sodium (Enoxaparin 40 Mg/0.4 Ml Syringe) 40 mg SQ DAILY [facility] Last Admin: 08/14/23 11:00 Dose: Not Given Gabapentin (Gabapentin 100 Mg Cap) 100 mg PO TID [facility] Last Admin: 08/14/23 08:20 Dose: 100 mg Furosemide 100 mg/ Sodium (Chloride) 100 mls @ 10 mls/hr IV .Q10H [facility] Last Admin: 08/14/23 15:13 Dose: 10 mg/hr, 10 mls/hr Ampicillin Sodium/Sulbactam (Sodium 1.5 gm/ Sodium Chloride) 50 mls @ 100 mls/hr IVPB Q6HR [facility]; Protocol Lactulose (Lactulose 20 Gm/30 Ml Cup) 20 gm PO DAILY PRN PRN Reason: Constipation Melatonin (Melatonin 3 Mg Tablet) 3 mg PO HS PRN PRN Reason: Insomnia Naloxone HCl (Naloxone 0.4 Mg/Ml 1 Ml Vial) 0.2 mg IV Q2M PRN PRN Reason: Opioid Reversal Ondansetron HCl (Ondansetron 4 Mg/2 Ml Vial) 4 mg IVP Q8HR PRN PRN Reason: Nausea And Vomiting Silver Sulfadiazine (Silver Sulfadiazine 1% Cream 25 Gm Tube) 1 applic TOPICAL BID MISAEL; Protocol Last Admin: 08/14/23 08:22 Dose: 1 applic Spironolactone (Spironolactone 25 Mg Tab) 25 mg PO DAILY MISAEL Last Admin: 08/14/23 08:20 Dose: 25 mg Past medical history to include: Asthma, hypertension 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 No recreational drugs. Physical examination: VITAL SIGNS: 98.1, 89, 18, 149/92, 91% room air GENERAL: Sitting edge of the bed. EYES: Pupils equal. Conjunctiva normal. HEENT: External appearance of nose and ears normal, oral cavity grossly normal. NECK: JVD not raised; masses not palpable. HEART: First and second heart sounds are normal; edema present. LUNGS: Respiratory rate normal; decreased breath sound. ABDOMEN: Soft, distended nontender, liver spleen not palpable, no masses palpable. PSYCH: Alert and oriented x3; mood and affect normal. MUSCULOSKELETAL:No Clubbing/cyanosis;muscles-grossly intact Lower extremity: Bilateral edema. Redness and tenderness. Some skin breakdown. INVESTIGATIONS, reviewed in the clinical context: August 14: Sodium 137 potassium 4. 25 creatinine 1.16 August 13: White count 9.5 hemoglobin 15.2 platelets 233 potassium 4.1 creatinine 1.1 Troponin I 0.020, 0.017, 0.019 ProBNP 1760 TSH 1.4 UA: Protein 1+ EKG tracing personally reviewed by me-normal sinus rhythm. Nonspecific ST-T wave changes. Chest x-ray film personally reviewed by me-interstitial prominence Venous Doppler bilateral lower extremity: Negative for DVT 2-D echocardiogram: Moderate concentric LVH. EF 25-30%. [id number] TR. Computed tomography scan abdomen and pelvis: Mild diffuse anasarca. Hepatic steatosis. Hydralazine CT chest: Diffuse mosaic groundglass a deterioration. Abdominal ultrasound: Mild fatty infiltration of liver. Assessment and plan: -Acute congestive heart exacerbation from systolic dysfunction EF 25-30%. No prior history of CAD.: Slow to respond Lasix drip at 10 mg an hour. Fluid restriction 1500 mL. Low-sodium diet. Aldactone 25 mg a day. Coreg 6.25 mg twice a day Would consider Entresto and Farsiga. Cardiology following. -Acute lower extremity cellulitis Silvadene cream with Kerlix and David wrap Start IV Unasyn. Consult ID. -Morbid obesity BMI 44.8 Weight loss measures -Hepatic steatosis -Painful peripheral neuropathy Neurontin -Abnormal CT chest Consult Dr. Warren -Full code Discussed with patient. Continue current medications. Continue Lasix drip. IV Unasyn. ID consulted. -
[2023-08-14] MEDS: AMPICILLIN-SULBACTAM 1.5 GM in SODIUM CHLORIDE 0.9% 50 ML IVPB SCH ×2 (18:25→23:14)
[2023-08-15] MEDS ORDERED: NAPROXEN 250 MG TAB PO STA (05:54)
[2023-08-15] MEDS ORDERED: ACETAMINOPHEN TAB 500 MG TAB PO STA (05:54)
[2023-08-15] MEDS: FUROSEMIDE 100 MG in SODIUM CHLORIDE 0.9% 90 ML IV SCH ×3 (06:03→19:48)
[2023-08-15] MEDS: carvediloL 6.25 MG TAB PO SCH ×2 (06:13→16:51)
[2023-08-15] MEDS: AMPICILLIN-SULBACTAM 1.5 GM in SODIUM CHLORIDE 0.9% 50 ML IVPB SCH ×2 (06:14→12:56)
--- NOTE | 2023-08-15 08:41 | P.CNPUL ---
History of Present Illness Consult date: 08/15/23 Requesting physician: Bj Tripathi Chief complaint: Lower extremity edema, cellulitis. History of present illness: Pulmonary consult dated 08/15/2023. This is a 53-year-old male, who presented to the emergency department, complaining of lower extremity edema, cellulitis, increasing abdominal girth, and scrotal edema. These complaints have been going on for a few weeks now, and getting worse. The patient was seen in the emergency department, admitted with a diagnosis of probable cellulitis. Currently, the patient's on a Lasix drip at 10 mg an hour, he is receiving oxygen at 2 L. And he is receiving antibiotics. He has a very poor ejection fraction by echocardiogram of 25-30%. He denies any cardiac history. He did smoke for about 20 years, but quit over 20 years ago. His primary care physician is Dr. Talley. He denies any shortness of breath or difficulty breathing. White count 9.5, hemoglobin 15.2, hematocrit 48.8, the platelet count of 233,000. D-dimer 0.65. Sodium 137, potassium 4, chlorides 96, CO2 34, BUN 25, and creatinine 1.16. Troponins were 0.017, and 0.019. Urine was negative. Blood cultures are negative. Chest x-ray shows mild interstitial changes, likely consistent with edema. Dopplers of the lower extremities were negative for DVT. Computed tomography scan of the chest was consistent with a mosaic pattern, likely related to underlying small airways disease. Review of Systems REVIEW OF SYSTEMS: CONSTITUTIONAL: Lower extremity cellulitis. NEUROLOGIC: [ Negative.] HEENT: [ Negative.] CARDIAC: Significant lower extremity edema. PULMONARY: [Negative.] GI: [Negative.] : [Negative.] RHEUMATOLOGIC: [ Negative.] IMMUNOLOGIC: [ Negative.] ENDOCRINE: [Negative. ] DERMATOLOGIC: Cellulitis of the lower extremities. Past Medical History Past Medical History: Hypertension, No Reported History History of Any Multi-Drug Resistant Organisms: None Reported Past Surgical History: Orthopedic Surgery Past Anesthesia/Blood Transfusion Reactions: No Reported Reaction Past Psychological History: No Psychological Hx Reported Smoking Status: Former smoker Past Alcohol Use History: None Reported Past Drug Use History: None Reported - Past Family History Father Additional Family Medical History / Comment(s): healthy, from head injury Mother Family Medical History: AFIB, COPD, Hypertension Additional Family Medical History / Comment(s): smoker Medications and Allergies Home Medications Medication Instructions Recorded Confirmed Type Albuterol Inhaler [Ventolin Hfa 2 puff INHALATION RT-QID PRN #1 12/24/22 08/12/23 Rx Inhaler] each Furosemide [Lasix] 20 mg PO DIRECTED 08/12/23 08/12/23 History Sacubitril/Valsartan [Entresto 24 1 each PO BID #60 tablet 08/14/23 Rx mg-26 mg Tablet] Allergies Allergy/AdvReac Type Severity Reaction Status Date / Time No Known Allergies Allergy Verified 08/12/23 12:14 Physical Exam Osteopathic Statement: *. No significant issues noted on an osteopathic structural exam other than those noted in the History and Physical/Consult. Vitals: Vital Signs Temp Pulse Resp BP Pulse Ox 08/15/23 08:00 97.6 F 85 16 100/62 95 08/15/23 02:56 97.4 F L 88 19 129/83 94 L 08/14/23 20:23 97.7 F 85 18 144/90 93 L 08/14/23 14:41 98.1 F 89 18 149/92 91 L Intake and Output 08/14/23 08/15/23 08/15/23 22:59 06:59 14:59 Intake Total 88.833 750 Output Total 2150 725 Balance -2061.167 25 Intake: Intake, IV Titration 88.833 Amount Furosemide 100 mg In 88.833 Sodium Chloride 0.9% 90 ml @ 10 MG/HR 10 mls/hr IV .Q10H [facility] Rx#: [id number] Oral 750 Output: Urine 2150 725 Other: Voiding Method Urinal No acute distress, oriented 3. Currently on 2 L, without evidence of any respiratory difficulty, conversational dyspnea, or use of accessory muscles. HEENT examination is grossly unremarkable. Mucous membranes are moist. No oral lesions. Neck supple. Full range of motion. No adenopathy thyromegaly or neck vein distention. Cardiovascular examination reveals regular rhythm rate. S1-S2 normal. No S3 or S4. No discernible murmur noted. Heart sounds distant. Heart rate 85 bpm. Lungs reveal clear breath sounds. Breath sounds are equal bilaterally. No adventitious lung sounds including wheezes rhonchi or crackles. 2 L saturation is 96%. Abdomen obese, with bowel sounds. No masses or tenderness. Extremities reveal significant lower extremity cellulitis, there is significant edema as well. Skin chronic venous stasis changes noted to lower extremities, but diffuse erythema and edema. Neurologic examination is brief but nonfocal. Results - Laboratory Findings CBC and BMP: 08/13/23 10:52 08/14/23 05:33 PT/INR, D-dimer PT 11.0 sec (10.0-12.5) 08/12/23 13:15 INR 1.0 (<1.2) 08/12/23 13:15 D-Dimer 0.65 mg/L FEU (<0.60) H 08/13/23 10:52 Abnormal lab findings: Abnormal Labs 08/12/23 08/12/23 08/12/23 13:15 13:15 17:02 WBC 11.3 H MCHC 30.8 L RDW 16.1 H Neutrophils # 9.4 H D-Dimer Chloride Carbon Dioxide BUN 25 H Glucose 111 H Hemoglobin A1c Phosphorus 4.6 H Albumin/Globulin Ratio Urine Protein 1+ H Urine Mucus Rare H 08/13/23 08/13/23 08/13/23 10:52 10:52 10:52 WBC MCHC RDW 16.1 H Neutrophils # D-Dimer 0.65 H Chloride Carbon Dioxide 33.1 H BUN Glucose Hemoglobin A1c Phosphorus Albumin/Globulin Ratio 1.39 L Urine Protein Urine Mucus 08/13/23 08/14/23 10:52 05:33 WBC MCHC RDW Neutrophils # D-Dimer Chloride 96 L Carbon Dioxide 34 H BUN 25 H Glucose 115 H Hemoglobin A1c 6.4 H Phosphorus Albumin/Globulin Ratio Urine Protein Urine Mucus - Diagnostic Findings Chest x-ray: image reviewed CT scan - chest: image reviewed Assessment and Plan Assessment: Cardiomyopathy, with an ejection fraction of 25-30%. Likely a component of mild interstitial edema, based on the patient's chest x-ray, and N-terminal proBNP. Significant lower extremity edema, with cellulitis. Rule out small airways disease, from previous tobacco use, of 20 years. Morbid obesity. Plan: Plan dated 08/15/2023. The patient is currently on albuterol inhaler, and he can use it just as needed. In addition, for her cellulitis, the patient is on Unasyn. The patient is also receiving other medications including Aldactone, Lovenox, and Coreg. The patient is not having much in the way of pulmonary complaints. His chest x-ray and N-terminal proBNP suggests some very mild interstitial edema. He remains on antibiotic for his cellulitis. He denies any pulmonary complaints today. We will continue to follow the patient make recommendations along the way. Follow- up in the office for PFTs would be beneficial. Prognosis is guarded given his poor cardiac function. Time with Patient: Greater than 30
[2023-08-15] MEDS: SPIRONOLACTONE 25 MG TAB PO SCH (08:57)
[2023-08-15] MEDS: GABAPENTIN 100 MG CAP PO SCH ×2 (08:57→19:49)
[2023-08-15] MEDS: SACUBITRIL/VALSARTAN 24 MG-26 MG TABLET PO SCH ×2 (08:57→19:48)
[2023-08-15] MEDS: ENOXAPARIN 40 MG/0.4 ML SYRINGE SQ SCH ×2 (08:57→09:10)
[2023-08-15 09:08] LABS: Chol/HDL Ratio 3.78 Ratio; LDL Cholesterol,Calculated 72.2 mg/dL (0.0-131.0); VLDL Calculation 16.76 mg/dL (5.00-40.00)
--- NOTE | 2023-08-15 09:09 | P.PN ---
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 Results reviewed with the patient. He states he has not had any problems with blood pressure in the past. He is currently on a Lasix drip continues to have lower extremity edema and erythema bilaterally. Patient complains of pain in the bilateral legs. Blood pressure readings remain elevated despite medication changes. Creatinine 1.16, potassium 4. 08/15 Patient continues to have significant lower extremity edema and erythema which is slowly improving. Patient denies having any shortness of breath. He still has pain to the lower extremities. He is in a negative fluid balance. Stat blood work is been ordered and not available at the time of this dictation. Blood pressure readings are improving. Blood pressure 129/83, heart rate 88, pulse ox 94% on 2 L nasal cannula. EXAMINATION: Breath sounds are clear to auscultation bilaterally Heart sounds are normal 23 plus lower extremity edema with erythema REVIEW OF LABS, ECG & MEDICAL DATA White count at the upper limits of normal Hemoglobin normal Minimally abnormal d-dimer Normal electrolytes normal renal function Normal liver function Normal cardiac enzymes Normal BMP Nurse practitioner note has been reviewed, I agree with the documented findings and plan of care. Patient was seen and examined. Objective - Vital Signs Vital signs: Vital Signs Temp 97.4 F L 08/15/23 02:56 Pulse 88 08/15/23 02:56 Resp 19 08/15/23 02:56 BP 129/83 08/15/23 02:56 Pulse Ox 94 L 08/15/23 02:56 FiO2 Intake & Output 08/14/23 08/15/2308/15/23 18:59 06:59 18:59 Intake Total 206.833 750 Output Total 1000 1875 Balance -793.562 -1120 Intake: Intake, IV Titration 88.833 Amount Furosemide 100 mg In 88.833 Sodium Chloride 0.9% 90 ml @ 10 MG/HR 10 mls/hr IV .Q10H [facility] Rx#: [id number] Oral 118 750 Output: Urine 1000 1875 Other: Voiding Method Urinal - Labs CBC & Chem 7: 08/13/23 10:52 08/14/23 05:33 Labs: Abnormal Lab Results - Last 24 Hours (Table) 08/13/23 Range/Units 10:52 Hemoglobin A1c 6.4 H (<=6.0) % Microbiology - Last 24 Hours (Table) 08/12/23 16:00 Blood Culture - Preliminary Blood 08/12/23 16:45 Blood Culture - Preliminary Blood
[2023-08-15] MEDS: acetaZOLAMIDE 250 MG TAB PO SCH (19:50)
--- NOTE | 2023-08-15 20:05 | P.PN ---
Progress Note - Text Progress Note Date: 08/15/23 Chief Complaint: Increasing edema This is a pleasant 53-year-old patient follows with, Dr. Chalo Talley. Patient presents with one month of increasing lower extremity edema. Extremity getting worse. Patient slowly started getting also short of breath. Also note abdomen to get distended. Lower extremity started seeping. Some redness lower extremity skin with pain. No chest pain. Patient did have a computed tomography scan of the chest in November when patient is admitted. He was told he has a noninfectious pneumonitis. Diagnoses according to him was unclear. August 14: Admitted with acute CHF exacerbation. Low EF. Remains on IV Lasix drip. Strict I's and O's. Lower extremity cellulitis. Add IV Unasyn. Consult ID. Care was discussed with the patient. Being followed by cardiology. August 15: Remains on IV Lasix drip 10 mg an hour. About 3 L in negative fluid balance. Peripheral neuropathy painful. Neurontin increased to 200 mg twice a day. Discussed with patient. IV Ancef. ID following. Entresto started. Some decrease in edema. Active Medications Acetazolamide (Acetazolamide 250 Mg Tab) 250 mg PO BID FOR[facility]LY [facility], [facility]1983 Last Admin: 08/15/23 19:50 Dose: 250 mg Albuterol Sulfate (Albuterol Nebulized 2.5 Mg/3 Ml) 2.5 mg INHALATION RT-QID PRN PRN Reason: Shortness Of Breath Or Wheezing Alprazolam (Alprazolam 0.25 Mg Tab) 0.25 mg PO Q6HR PRN PRN Reason: Anxiety Calcium Carbonate/Glycine (Calcium Carbonate 500 Mg Chewable) 1,000 mg PO Q4HR PRN PRN Reason: Dyspepsia Carvedilol (Carvedilol 6.25 Mg Tab) 6.25 mg PO BID-W/MEALS FORMERLY [facility], [facility]–1983 Last Admin: 08/15/23 16:51 Dose: 6.25 mg Enoxaparin Sodium (Enoxaparin 40 Mg/0.4 Ml Syringe) 40 mg SQ DAILY FOR[facility]LY [facility], [facility]1983 Last Admin: 08/15/23 09:10 Dose: Not Given Gabapentin (Gabapentin 100 Mg Cap) 200 mg PO BID [facility]LY [facility], [facility] Last Admin: 08/15/23 19:49 Dose: 200 mg Furosemide 100 mg/ Sodium (Chloride) 100 mls @ 10 mls/hr IV .Q10H [facility] Last Admin: 08/15/23 19:48 Dose: 10 mg/hr, 10 mls/hr Cefazolin Sodium 2 gm/ Sodium (Chloride) 50 mls @ 100 mls/hr IVPB Q8HR [facility], [facility]; Protocol Last Admin: 08/15/23 16:52 Dose: 100 mls/hr Lactulose (Lactulose 20 Gm/30 Ml Cup) 20 gm PO DAILY PRN PRN Reason: Constipation Melatonin (Melatonin 3 Mg Tablet) 3 mg PO HS PRN PRN Reason: Insomnia Naloxone HCl (Naloxone 0.4 Mg/Ml 1 Ml Vial) 0.2 mg IV Q2M PRN PRN Reason: Opioid Reversal Ondansetron HCl (Ondansetron 4 Mg/2 Ml Vial) 4 mg IVP Q8HR PRN PRN Reason: Nausea And Vomiting Sacubitril/Valsartan (Sacubitril/Valsartan 24 Mg-26 Mg Tablet) 1 each PO BID [facility] Last Admin: 08/15/23 19:48 Dose: 1 each Silver Sulfadiazine (Silver Sulfadiazine 1% Cream 25 Gm Tube) 1 applic TOPICAL BID [facility], [facility]; Protocol Last Admin: 08/15/23 19:50 Dose: 1 applic Spironolactone (Spironolactone 25 Mg Tab) 25 mg PO DAILY [facility] Last Admin: 08/15/23 08:57 Dose: 25 mg Past medical history to include: Asthma, hypertension 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 No smoking or alcohol. No recreational drugs. Physical examination: VITAL SIGNS: 97.4, 84, 16, 127/72, 92% on 2 L GENERAL: Up in bed EYES: Pupils equal. Conjunctiva normal. HEENT: External appearance of nose and ears normal, oral cavity grossly normal. NECK: JVD not raised; masses not palpable. HEART: First and second heart sounds are normal; edema present. LUNGS: Respiratory rate normal; decreased breath sound. ABDOMEN: Soft, distended nontender, liver spleen not palpable, no masses palpable. PSYCH: Alert and oriented x3; mood and affect normal. MUSCULOSKELETAL:No Clubbing/cyanosis;muscles-grossly intact Lower extremity: Bilateral edema. Redness and tenderness. Some skin breakdown. INVESTIGATIONS, reviewed in the clinical context: LDL August 14: Sodium 137 potassium 4. 25 creatinine 1.August 13: White count 9.5 hemoglobin 15.2 platelets 233 potassium 4.1 creatinine 1.1 Troponin I 0.020, 0.017, 0.019 ProBNP 1760 TSH 1.4 UA: Protein 1+ EKG tracing personally reviewed by me-normal sinus rhythm. Nonspecific ST-T wave changes. Chest x-ray film personally reviewed by me-interstitial prominence Venous Doppler bilateral lower extremity: Negative for DVT 2-D echocardiogram: Moderate concentric LVH. EF 25-30%. [id number] TR. Computed tomography scan abdomen and pelvis: Mild diffuse anasarca. Hepatic steatosis. Hydralazine CT chest: Diffuse mosaic groundglass a deterioration. Abdominal ultrasound: Mild fatty infiltration of liver. Assessment and plan: -Acute congestive heart exacerbation from systolic dysfunction EF 25-30%. No prior history of CAD.: Slow to respond Lasix drip at 10 mg an hour. Fluid restriction 1500 mL. Low-sodium diet. Aldactone 25 mg a day. Coreg 6.25 mg twice a day Started on Entresto Cardiology following. -Acute lower extremity cellulitis Silvadene cream with Kerlix and David wrap IV Unasyn. ID following -Morbid obesity BMI 44.8 Weight loss measures -Hepatic steatosis -Painful peripheral neuropathy Neurontin -Abnormal CT chest Seen by pulmonary Dr. Warren. -Full code Discussed with patient. Continue Lasix drip. IV Ancef. Follow labs. -
--- NOTE | 2023-08-15 22:30 | P.CONS ---
History of Present Illness - Reason for Consult Consult date: 08/15/23 bilateral lower extremity cellulitis Requesting physician: Bj Tripathi - Chief Complaint increasing swelling to lower extremity x few days - History of Present Illness Patient is a 53-year-old male with a past medical history significant for hypertension presenting to the hospital 3 days ago for evaluation of increasing bilateral lower extremity swelling which apparently has been extending all the way to the scrotal and lower abdominal area patient apparently has been evaluated by his primary care physician for his lower extremity swelling and has been started on Lasix however the patient mention he was unable to take it twice a day as he is a professional class b truck driver, with worsening swelling which is extending all the way to his lower abdominal that got him concerned and the patient presented to the hospital, patient denies having any fever or any chills has been complaining of mostly swelling to bilateral upper extremity did have some erythema and some clear fluid drainage did have some dull aching pain to bilateral lower extremity intensity is mild to moderate without any radiation patient also complaining of shortness of breath no chest p ain or cough no nausea vomiting no abdominal pain or any diarrhea patient on presentation to the hospital was afebrile and no fever has been recorded subsequently did have white count of 11.3 with a left shift BUN was mildly elevated creatinine is normal liver exams are normal UA has been negative blood cultures obtained currently pending patient did have a chest x-ray similar persistent interstitial prominent lung markings which may represent pulmonary fibrosis versus atypical pneumonia patient did have abdominal pelvis CT under distended urinary bladder with perivascular fat stranding mild diffuse anasarca hepatic steatosis CT of the chest no evidence of pulmonary fibrosis diffuse mosaic groundglass attenuation which worsened with expiration suggest air trapping with etiologies including COPD hypersensitivity pneumonitis and mild COPD changes patient was initially on cefazolin switched to Unasyn infectious was consulted for further management of bilateral lower extremity cellulitis Review of Systems Positive point and negatives has been mentioned in the HPI, complete review of systems was performed and all other systems are negative Past Medical History Past Medical History: Hypertension, No Reported History History of Any Multi-Drug Resistant Organisms: None Reported Past Surgical History: Orthopedic Surgery Past Anesthesia/Blood Transfusion Reactions: No Reported Reaction Past Psychological History: No Psychological Hx Reported Smoking Status: Former smoker Past Alcohol Use History: None Reported Past Drug Use History: None Reported - Past Family History Father Additional Family Medical History / Comment(s): healthy, from head injury Mother Family Medical History: AFIB, COPD, Hypertension Additional Family Medical History / Comment(s): smoker Medications and Allergies Home Medications Medication Instructions Recorded Confirmed Type Albuterol Inhaler [Ventolin Hfa 2 puff INHALATION RT-QID PRN #1 12/24/22 08/12/23 Rx Inhaler] each Furosemide [Lasix] 20 mg PO DIRECTED 08/12/23 08/12/23 History Sacubitril/Valsartan [Entresto 24 1 each PO BID #60 tablet 08/14/23 Rx mg-26 mg Tablet] Allergies Allergy/AdvReac Type Severity Reaction Status Date / Time No Known Allergies Allergy Verified 08/12/23 12:14 Physical Exam Vitals: Vital Signs Temp Pulse Resp BP Pulse Ox 08/15/23 08:00 97.6 F 85 16 100/62 95 08/15/23 02:56 97.4 F L 88 19 129/83 94 L 08/14/23 20:23 97.7 F 85 18 144/90 93 L 08/14/23 14:41 98.1 F 89 18 149/92 91 L Intake and Output 08/14/23 08/15/23 08/15/23 22:59 06:59 14:59 Intake Total 88.833 850 Output Total 2150 725 900 Balance -2061.167 125 -900 Intake: Intake, IV Titration 88.833 100 Amount Furosemide 100 mg In 88.833 100 Sodium Chloride 0.9% 90 ml @ 10 MG/HR 10 mls/hr IV .Q10H [facility] Rx#: [id number] Oral 750 Output: Urine 2150 725 900 Other: Voiding Method Urinal GENERAL DESCRIPTION: Middle-aged male lying in bed, no distress. No tachypnea or accessory muscle of respiration use. HEENT: Shows Pallor , no scleral icterus. Oral mucous membrane is dry. No pharyngeal erythema or thrush NECK: Trachea central, no thyromegaly. LUNGS: Unlabored breathing. decreased breath sound at the bases HEART: S1, S2, regular rate and rhythm. No loud murmur ABDOMEN: Soft, no tenderness EXTREMITIES: diffuse swelling to bilateral lower extremity with weeping edema and redness which is warm to touch SKIN: No rash, no masses palpable. NEUROLOGICAL: The patient is awake, alert, oriented x3, mood and affect normal. Results CBC & Chem 7: 08/13/23 10:52 08/16/23 05:59 Labs: Abnormal Lab Results - Last 24 Hours (Table) 08/13/23 08/15/23 Range/Units 10:52 05:32 Hemoglobin A1c 6.4 H (<=6.0) % HDL Cholesterol 32.00 L (40.00-60.00) mg/dL Microbiology - Last 24 Hours (Table) 08/12/23 16:00 Blood Culture - Preliminary Blood 08/12/23 16:45 Blood Culture - Preliminary Blood Assessment and Plan (1) Bilateral lower extremity edema Current Visit: Yes Status: Acute Code(s): R60.0 - LOCALIZED EDEMA SNOMED Code(s): 205206567 (2) Bilateral lower leg cellulitis Current Visit: Yes Status: Acute Code(s): L03.116 - CELLULITIS OF LEFT LOWER LIMB; L03.115 - CELLULITIS OF RIGHT LOWER LIMB SNOMED Code(s): 834025070 Plan: 1patient presented to hospital with increasing bilateral lower extremity abdominal and scrotal swelling in this patient who did have evidence of fluid overload likely from a cardiac etiology he also have a component of erythema to bilateral extremity and some clear drainage and a possible component of cellulitis likely from gram-positive skin coy low risk factor for a gram- negative or MRSA infection 2-discontinue Unasyn 3-start the patient on cefazolin 2 g every 8 hours 4-apply ABD to the beeping area followed by David wrap to both the legs from just above toes to below the knee change daily We will follow on clinical condition and cultures to further adjust medication if needed Thank you for this consultation we will follow the patient along with you Dictation was produced using [employer] dictation software. please excuse any grammatical, word or spelling errors. Time with Patient: Greater than 30
[2023-08-16 00:32] LABS: BUN/Creat Ratio 15.85 Ratio (12.00-20.00); Blood Urea Nitrogen 20.6 mg/dL (9.0-27.0); Calcium 8.8 mg/dL (8.7-10.3); Carbon Dioxide 33.2 mmol/L (21.6-31.8); Chloride 97 mmol/L (96-109); Glucose 119 mg/dL (70-110); Potassium 4.1 mmol/L (3.5-5.5); Sodium 143 mmol/L (135-145)
[2023-08-16] MEDS ORDERED: ACETAMINOPHEN TAB 325 MG TAB PO STA (00:42)
[2023-08-16] MEDS ORDERED: NAPROXEN 250 MG TAB PO STA (00:43)
[2023-08-16] MEDS: carvediloL 6.25 MG TAB PO SCH ×2 (05:56→17:55)
[2023-08-16] MEDS: FUROSEMIDE 100 MG in SODIUM CHLORIDE 0.9% 90 ML IV SCH (05:56)
[2023-08-16] MEDS: acetaZOLAMIDE 250 MG TAB PO SCH ×2 (09:17→21:41)
[2023-08-16] MEDS: GABAPENTIN 100 MG CAP PO SCH ×2 (09:17→21:41)
[2023-08-16] MEDS: FUROSEMIDE 40 MG TAB PO SCH ×2 (09:17→15:52)
[2023-08-16] MEDS: SPIRONOLACTONE 25 MG TAB PO SCH (09:17)
[2023-08-16] MEDS: SACUBITRIL/VALSARTAN 24 MG-26 MG TABLET PO SCH ×2 (09:17→21:41)
[2023-08-16] MEDS: ENOXAPARIN 40 MG/0.4 ML SYRINGE SQ SCH (09:18)
[2023-08-16 09:21] LABS: Blood Urea Nitrogen 23.1 mg/dL (9.0-27.0); Calcium 9.1 mg/dL (8.7-10.3); Carbon Dioxide 34.6 mmol/L (21.6-31.8); Chloride 99 mmol/L (96-109); Glucose 133 mg/dL (70-110); Potassium 4.6 mmol/L (3.5-5.5); Sodium 143 mmol/L (135-145)
--- NOTE | 2023-08-16 12:22 | P.PN ---
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 PLAN: Transition IV Lasix gtt to oral 120 mg twice daily Continue treatment for lower extremity cellulitis Continue Coreg 6.25 mg twice daily for blood pressure control Prescription for Entresto sent to the pharmacy and waiting for prior off Continue patient on Entresto 24 mg26 mg twice daily Continue Aldactone Monitor I&O, daily weights, electrolytes and renal function HPI Patient presented with worsening lower extremity edema for one month with worsening redness and cellulitis and scrotal edema 08/14 Echocardiogram reveals severe LV dysfunction with EF of 25-30% with increased LV mass, dilated IVC. Results reviewed with the patient. He states he has not had any problems with blood pressure in the past. He is currently on a Lasix drip continues to have lower extremity edema and erythema bilaterally. Patient complains of pain in the bilateral legs. Blood pressure readings remain elev ated despite medication changes. Creatinine 1.16, potassium 4. 08/15 Patient continues to have significant lower extremity edema and erythema which is slowly improving. Patient denies having any shortness of breath. He still has pain to the lower extremities. He is in a negative fluid balance. Stat blood work is been ordered and not available at the time of this dictation. Blood pressure readings are improving. Blood pressure 129/83, heart rate 88, pulse ox 94% on 2 L nasal cannula. 08/16 The patient is seen today in follow-up. He continues to have severe pain in his legs with erythema and edema although improving. Yesterday she was started on Diamox. CO2 is 34. BUN 23 creatinine 1.9. Sodium 143, potassium 4.6. Patient remains on Lasix drip. He states his breathing is okay. EXAMINATION: Breath sounds are clear to auscultation bilaterally Heart sounds are normal 2-3 plus lower extremity edema with erythema REVIEW OF LABS, ECG & MEDICAL DATA White count at the upper limits of normal Hemoglobin normal Minimally abnormal d-dimer Normal electrolytes normal renal function Normal liver function Normal cardiac enzymes Normal BMP Nurse practitioner note has been reviewed, I agree with the documented findings and plan of care. Patient was seen and examined. Objective - Vital Signs Vital signs: Vital Signs Temp 97.7 F 08/16/23 01:04 Pulse 87 08/16/23 01:04 Resp 16 08/16/23 01:04 BP 129/82 08/16/23 01:04 Pulse Ox 98 08/16/23 01:04 FiO2 Intake & Output 08/15/23 08/16/23 08/16/23 18:59 06:59 18:59 Intake Total 840 600 Output Total 2100 900 Balance -1260 -300 Intake: Intake, IV Titration 100 100 Amount Furosemide 100 mg In 100 100 Sodium Chloride 0.9% 90 ml @ 10 MG/HR 10 mls/hr IV .Q10H [facility] Rx#: [id number] Oral 740 500 Output: Urine 2100 900 Other: Voiding Method Urinal Urinal - Labs CBC & Chem 7: 08/13/23 10:52 08/16/23 05:59 Labs: Abnormal Lab Results - Last 24 Hours (Table) 08/15/23 08/15/23 Range/Units 05:32 05:32 Carbon Dioxide 33.2 H (21.6-31.8) mmol/L Anion Gap 12.80 H (4.00-12.00) mmol/L Glucose 119 H (70-110) mg/dL HDL Cholesterol 32.00 L (40.00-60.00) mg/dL Microbiology - Last 24 Hours (Table) 08/12/23 16:00 Blood Culture - Preliminary Blood 08/12/23 16:45 Blood Culture - Preliminary Blood
--- NOTE | 2023-08-16 14:14 | P.PN ---
Progress Note - Text Progress Note Date: 08/16/23 Chief Complaint: Increasing edema This is a pleasant 53-year-old patient follows with, Dr. Chalo Talley. Patient presents with one month of increasing lower extremity edema. Extremity getting worse. Patient slowly started getting also short of breath. Also note abdomen to get distended. Lower extremity started seeping. Some redness lower extremity skin with pain. No chest pain. Patient did have a computed tomography scan of the chest in November when patient is admitted. He was told he has a noninfectious pneumonitis. Diagnoses according to him was unclear. August 14: Admitted with acute CHF exacerbation. Low EF. Remains on IV Lasix drip. Strict I's and O's. Lower extremity cellulitis. Add IV Unasyn. Consult ID. Care was discussed with the patient. Being followed by cardiology. August 15: Remains on IV Lasix drip 10 mg an hour. About 3 L in negative fluid balance. Peripheral neuropathy painful. Neurontin increased to 200 mg twice a day. Discussed with patient. IV Ancef. ID following. Entresto started. Some decrease in edema. August 16: Today cardiology changed t over from Lasix drip to Lasix 120 mg twice a day. Lower extremity pain is better. On IV cefazolin. Also on Entresto. Aldactone. Diamox. About 6 L in negative fluid balance. Discussed with patient increase activity. Hopefully home tomorrow. Active Medications Acetazolamide (Acetazolamide 250 Mg Tab) 250 mg PO BID [facility] Last Admin: 08/16/23 09:17 Dose: 250 mg Albuterol Sulfate (Albuterol Nebulized 2.5 Mg/3 Ml) 2.5 mg INHALATION RT-QID PRN PRN Reason: Shortness Of Breath Or Wheezing Alprazolam (Alprazolam 0.25 Mg Tab) 0.25 mg PO Q6HR PRN PRN Reason: Anxiety Calcium Carbonate/Glycine (Calcium Carbonate 500 Mg Chewable) 1,000 mg PO Q4HR PRN PRN Reason: Dyspepsia Carvedilol (Carvedilol 6.25 Mg Tab) 6.25 mg PO BID-W/MEALS [facility] Last Admin: 08/16/23 05:56 Dose: 6.25 mg Enoxaparin Sodium (Enoxaparin 40 Mg/0.4 Ml Syringe) 40 mg SQ DAILY [facility] Last Admin: 08/16/23 09:18 Dose: Not Given Furosemide (Furosemide 40 Mg Tab) 120 mg PO BID@0900,1600 [facility] Last Admin: 08/16/23 09:17 Dose: 120 mg Gabapentin (Gabapentin 100 Mg Cap) 200 mg PO BID [facility] Last Admin: 08/16/23 09:17 Dose: 200 mg Cefazolin Sodium 2 gm/ Sodium (Chloride) 50 mls @ 100 mls/hr IVPB Q8HR [facility]; Protocol Last Admin: 08/16/23 09:16 Dose: 100 mls/hr Lactulose (Lactulose 20 Gm/30 Ml Cup) 20 gm PO DAILY PRN PRN Reason: Constipation Melatonin (Melatonin 3 Mg Tablet) 3 mg PO HS PRN PRN Reason: Insomnia Naloxone HCl (Naloxone 0.4 Mg/Ml 1 Ml Vial) 0.2 mg IV Q2M PRN PRN Reason: Opioid Reversal Ondansetron HCl (Ondansetron 4 Mg/2 Ml Vial) 4 mg IVP Q8HR PRN PRN Reason: Nausea And Vomiting Sacubitril/Valsartan (Sacubitril/Valsartan 24 Mg-26 Mg Tablet) 1 each PO BID [facility] Last Admin: 08/16/23 09:17 Dose: 1 each Silver Sulfadiazine (Silver Sulfadiazine 1% Cream 25 Gm Tube) 1 applic TOPICAL BID [facility]; Protocol Last Admin: 08/16/23 09:18 Dose: 1 applic Spironolactone (Spironolactone 25 Mg Tab) 25 mg PO DAILY [facility] Last Admin: 08/16/23 09:17 Dose: 25 mg Past medical history to include: Asthma, hypertension 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 No smoking or alcohol. No recreational drugs. Physical examination: VITAL SIGNS: 97.6, 79, 16, 104/71, 93% room air GENERAL: Up in a chair EYES: Pupils equal. Conjunctiva normal. HEENT: External appearance of nose and ears normal, oral cavity grossly normal. NECK: JVD not raised; masses not palpable. HEART: First and second heart sounds are normal; edema present. LUNGS: Respiratory rate normal; decreased breath sound. ABDOMEN: Soft, distended nontender, liver spleen not palpable, no masses palpable. PSYCH: Alert and oriented x3; mood and affect normal. MUSCULOSKELETAL:No Clubbing/cyanosis;muscles-grossly intact Lower extremity: Bilateral edema, some decrease. Redness and tenderness. Some skin breakdown. INVESTIGATIONS, reviewed in the clinical context: August 16: 4143 creatinine 1.4 LDL 72 August 14: Sodium 137 potassium 4. 25 creatinine 1.16 August 13: White count 9.5 hemoglobin 15.2 platelets 233 potassium 4.1 creatinine 1.1 Troponin I 0.020, 0.017, 0.019 ProBNP 1760 TSH 1.4 UA: Protein 1+ EKG tracing personally reviewed by me-normal sinus rhythm. Nonspecific ST-T wave changes. Chest x-ray film personally reviewed by me-interstitial prominence Venous Doppler bilateral lower extremity: Negative for DVT 2-D echocardiogram: Moderate concentric LVH. EF 25-30%. [id number] TR. Computed tomography scan abdomen and pelvis: Mild diffuse anasarca. Hepatic steatosis. Hydralazine CT chest: Diffuse mosaic groundglass a deterioration. Abdominal ultrasound: Mild fatty infiltration of liver. Assessment and plan: -Acute congestive heart exacerbation from systolic dysfunction EF 25-30%. No prior history of CAD.: Slow to respond Lasix drip changed over to one 20 mg by mouth twice a day.. Fluid restriction 1500 mL. Low-sodium diet. Aldactone 25 mg a day. Coreg 6.25 mg twice a day Entresto Cardiology following. -Acute lower extremity cellulitis Silvadene cream with Kerlix and David wrap IV Ancef. ID following -Morbid obesity BMI 44.8 Weight loss measures -Hepatic steatosis -Painful peripheral neuropathy: Better Neurontin 200 mg twice a day -Abnormal CT chest Seen by pulmonary Dr. Warren. -Full code Discussed with patient. Increase activity. Able remains improving then home tomorrow. -
--- NOTE | 2023-08-16 14:20 | P.PN ---
Subjective Progress Note Date: 08/16/23 This is a 53-year-old male, who presented to the emergency department, complaining of lower extremity edema, cellulitis, increasing abdominal girth, and scrotal edema. These complaints have been going on for a few weeks now, and getting worse. The patient was seen in the emergency department, admitted with a diagnosis of probable cellulitis. Currently, the patient's on a Lasix drip at 10 mg an hour, he is receiving oxygen at 2 L. And he is receiving antibiotics. He has a very poor ejection fraction by echocardiogram of 25-30%. He denies any cardiac history. He did smoke for about 20 years, but quit over 20 years ago. His primary care physician is Dr. Talley. He denies any shortness of breath or difficulty breathing. White count 9.5, hemoglobin 15.2, hematocrit 48.8, the platelet count of 233,000. D-dimer 0.65. Sodium 137, potassium 4, chlorides 96, CO2 34, BUN 25, and creatinine 1.16. Troponins were 0.017, and 0.019. Urine was negative. Blood cultures are negative. Chest x-ray shows mild interstitial changes, likely consistent with edema. Dopplers of the lower extremities were negative for DVT. Computed tomography scan of the chest was consistent with a mosaic pattern, likely related to underlying small airways disease. The patient is seen today 08/16/2023 in follow-up on the regular medical floor. He is currently weighing resting fairly comfortably in bed. He states he is doing a bit better today compared to yesterday. He has been transitioned from a Lasix drip to oral diuretics. He is maintaining good O2 saturations in the 90s on 2 L/m per nasal cannula. He remains on for his lower extremity cellulitis. There is a bit less edema. Blood cultures reveal no growth. Sodium 143. Potassium 4.6. Bicarb 35. BUN 23. Creatinine 1.4. Glucose 133. Currently in a -1.5 L balance. He remains on Lovenox for DVT prophylaxis. Objective - Vital Signs Vital signs: Vital Signs Temp 97.6 F 08/16/23 14:00 Pulse 79 08/16/23 14:00 Resp 16 08/16/23 14:00 BP 104/71 08/16/23 14:00 Pulse Ox 93 L 08/16/23 14:00 FiO2 Intake & Output 08/15/23 08/16/23 08/16/23 18:59 06:59 18:59 Intake Total 840 600 836 Output Total 2100 900 1300 Balance -1951 -072 -310 Intake: Intake, IV Titration 100 100 Amount Furosemide 100 mg In 100 100 Sodium Chloride 0.9% 90 ml @ 10 MG/HR 10 mls/hr IV .Q10H [facility] Rx#: [id number] Oral 740 500 836 Output: Urine 2100 900 1300 Other: Voiding Method Urinal Urinal Urinal - Exam GENERAL EXAM: Alert, morbidly obese, pleasant 53-year-old male patient on 2 L nasal cannula, comfortable in no apparent distress. HEAD: Normocephalic. EYES: Normal reaction of pupils, equal size. NOSE: Clear with pink turbinates. THROAT: No erythema or exudates. NECK: No masses, no JVD. CHEST: No chest wall deformity. LUNGS: Equal air entry with no crackles, wheeze, rhonchi or dullness. CVS: S1 and S2 normal with no audible murmur, regular rhythm. ABDOMEN: No hepatosplenomegaly, normal bowel sounds, no guarding or rigidity. SPINE: No scoliosis or deformity SKIN: Cellulitis of the lower extremities CENTRAL NERVOUS SYSTEM: No focal deficits, tone is normal in all 4 extremities. EXTREMITIES: There is 3+ peripheral edema. Cellulitis of the lower extremities. No clubbing, no cyanosis. Peripheral pulses are intact. - Labs CBC & Chem 7: 08/13/23 10:52 08/16/23 05:59 Labs: Abnormal Lab Results - Last 24 Hours (Table) 08/15/23 08/16/23 Range/Units 05:32 05:59 Carbon Dioxide 33.2 H 34.6 H (21.6-31.8) mmol/L Anion Gap 12.80 H (4.00-12.00) mmol/L Glucose 119 H 133 H (70-110) mg/dL Microbiology - Last 24 Hours (Table) 08/12/23 16:00 Blood Culture - Preliminary Blood 08/12/23 16:45 Blood Culture - Preliminary Blood Assessment and Plan Assessment: Acute hypoxemic respiratory failure secondary to an acute exacerbation of systolic congestive heart failure Cardiomyopathy, with an ejection fraction of 25-30%. Likely a component of mild interstitial edema, based on the patient's chest x-ray, and N-terminal proBNP. Significant lower extremity edema, with cellulitis. Remains on cefazolin Rule out small airways disease, from previous tobacco use, of 20 years. Morbid obesity with a BMI of 44.8 kg per metered squared Plan: The patient was seen and evaluated Medications and labs reviewed Transitioned to oral diuretics Remains on cefazolin Lovenox for DVT prophylaxis Titrate the FiO2 as tolerated We will continue to follow This patient was seen independently by the nurse practitioner I have personally seen and examined the patient, performed the documentation and the assessment and plan as written. Number of minutes spent on the visit: 25.
--- NOTE | 2023-08-16 14:56 | P.PN ---
Subjective Progress Note Date: 08/16/23 Principal diagnosis: bilateral lower extremity cellulitis Patient is a 53-year-old male with a past medical history significant for hypertension presenting to the hospital for evaluation of increasing bilateral lower extremity swelling and also swelling to the scrotal and lower abdominal area patient also have erythema to the lower extremity concerning for cellulitis. On today's evaluation that is 08/16/2023, the patient remains to be afebrile the patient is breathing comfortably on room air without need for supplemental oxygen, the patient denies chest pain or cough, patient denies nausea/vomiting , no diarrhea and no abdominal pain, lower extremity swelling redness has slightly decreased Patient did have a creatinine 1.4, no CBC was done today, blood cultures pending Objective - Vital Signs Vital signs: Vital Signs Temp 97.6 F 08/16/23 08:00 Pulse 82 08/16/23 08:00 Resp 18 08/16/23 08:00 BP 105/70 08/16/23 08:00 Pulse Ox 93 L 08/16/23 08:00 FiO2 Intake & Output 08/15/23 08/16/23 08/16/23 18:59 06:59 18:59 Intake Total 840 600 836 Output Total 2100 900 Balance -1260 -300 836 Intake: Intake, IV Titration 100 100 Amount Furosemide 100 mg In 100 100 Sodium Chloride 0.9% 90 ml @ 10 MG/HR 10 mls/hr IV .Q10H [facility] Rx#: [id number] Oral 740 500 836 Output: Urine 2100 900 Other: Voiding Method Urinal Urinal Urinal - Exam GENERAL DESCRIPTION: middle-age male up in the chair in no distress RESPIRATORY SYSTEM: Unlabored breathing , decreased breath sounds at bases HEART: S1 S2 regular rate and rhythm , ABDOMEN: Soft , no tenderness EXTREMITIES: bilateral lower extremity swelling and redness has slightly decreased no significant drainage - Labs CBC & Chem 7: 08/13/23 10:52 08/16/23 05:59 Labs: Abnormal Lab Results - Last 24 Hours (Table) 08/15/23 08/16/23 Range/Units 05:32 05:59 Carbon Dioxide 33.2 H 34.6 H (21.6-31.8) mmol/L Anion Gap 12.80 H (4.00-12.00) mmol/L Glucose 119 H 133 H (70-110) mg/dL Microbiology - Last 24 Hours (Table) 08/12/23 16:00 Blood Culture - Preliminary Blood 08/12/23 16:45 Blood Culture - Preliminary Blood Assessment and Plan (1) Bilateral lower leg cellulitis Current Visit: Yes Status: Acute Code(s): L03.116 - CELLULITIS OF LEFT LOWER LIMB; L03.115 - CELLULITIS OF RIGHT LOWER LIMB SNOMED Code(s): 366896641 Plan: 1patient presented to hospital with increasing bilateral lower extremity abdominal and scrotal swelling in this patient who did have evidence of fluid overload likely from a cardiac etiology he also have a component of erythema to bilateral extremity and some clear drainage and a possible component of cellulitis likely from gram-positive skin coy low risk factor for a gram- negative or MRSA infection 2-patient to continue with cefazolin 2 g every 8 hours, along with dressing as ordered and monitor clinical course closely Dictation was produced using [employer] dictation software. please excuse any grammatical, word or spelling errors. Time with Patient: Less than 30
[2023-08-17 04:26] VITALS: TEMP 97.6
--- NOTE | 2023-08-17 07:49 | P.PN ---
Subjective Progress Note Date: 08/17/23 This is a 53-year-old male, who presented to the emergency department, complaining of lower extremity edema, cellulitis, increasing abdominal girth, and scrotal edema. These complaints have been going on for a few weeks now, and getting worse. The patient was seen in the emergency department, admitted with a diagnosis of probable cellulitis. Currently, the patient's on a Lasix drip at 10 mg an hour, he is receiving oxygen at 2 L. And he is receiving antibiotics. He has a very poor ejection fraction by echocardiogram of 25-30%. He denies any cardiac history. He did smoke for about 20 years, but quit over 20 years ago. His primary care physician is Dr. Talley. He denies any shortness of breath or difficulty breathing. White count 9.5, hemoglobin 15.2, hematocrit 48.8, the platelet count of 233,000. D-dimer 0.65. Sodium 137, potassium 4, chlorides 96, CO2 34, BUN 25, and creatinine 1.16. Troponins were 0.017, and 0.019. Urine was negative. Blood cultures are negative. Chest x-ray shows mild interstitial changes, likely consistent with edema. Dopplers of the lower extremities were negative for DVT. Computed tomography scan of the chest was consistent with a mosaic pattern, likely related to underlying small airways disease. The patient is seen today 08/16/2023 in follow-up on the regular medical floor. He is currently weighing resting fairly comfortably in bed. He states he is doing a bit better today compared to yesterday. He has been transitioned from a Lasix drip to oral diuretics. He is maintaining good O2 saturations in the 90s on 2 L/m per nasal cannula. He remains on for his lower extremity cellulitis. There is a bit less edema. Blood cultures reveal no growth. Sodium 143. Potassium 4.6. Bicarb 35. BUN 23. Creatinine 1.4. Glucose 133. Currently in a -1.5 L balance. He remains on Lovenox for DVT prophylaxis. The patient is seen today 08/17/2023 in follow-up on the regular medical floor. He is awake and alert in no acute distress. Resting comfortably in bed. Breathing easier today compared to yesterday. He is maintaining O2 saturations in the 90s on room air. He's been afebrile. Hemodynamically stable. No IV fluids. He remains on Kefzol for cellulitis of the lower extremities. Remains on oral diuretics. Blood cultures reveal no growth. Labs are pending. Objective - Vital Signs Vital signs: Vital Signs Temp 97.6 F 08/17/23 02:00 Pulse 79 08/17/23 02:00 Resp 16 08/17/23 02:00 BP 120/83 08/17/23 02:00 Pulse Ox 94 L 08/17/23 02:00 FiO2 Intake & Output 08/16/23 08/17/23 08/17/23 18:59 06:59 18:59 Intake Total 954 Output Total 1300 2100 Balance -346 -2100 Weight 134.8 kg Intake: Oral 954 Output: Urine 1300 2100 Other: Voiding Method Urinal Urinal - Exam GENERAL EXAM: Alert, pleasant 53-year-old male patient on room air, comfortable in no apparent distress. HEAD: Normocephalic. EYES: Normal reaction of pupils, equal size. NOSE: Clear with pink turbinates. THROAT: No erythema or exudates. NECK: No masses, no JVD. CHEST: No chest wall deformity. LUNGS: Equal air entry with no crackles, wheeze, rhonchi or dullness. CVS: S1 and S2 normal with no audible murmur, regular rhythm. ABDOMEN: No hepatosplenomegaly, normal bowel sounds, no guarding or rigidity. SPINE: No scoliosis or deformity SKIN: Cellulitis of the lower extremities CENTRAL NERVOUS SYSTEM: No focal deficits, tone is normal in all 4 extremities. EXTREMITIES: There is 3+ peripheral edema. Cellulitis of the lower extremities. Legs are wrapped. No clubbing, no cyanosis. Peripheral pulses are intact. - Labs CBC & Chem 7: 08/13/23 10:52 08/16/23 05:59 Labs: Abnormal Lab Results - Last 24 Hours (Table) 08/16/23 Range/Units 05:59 Carbon Dioxide 34.6 H (21.6-31.8) mmol/L Glucose 133 H (70-110) mg/dL Assessment and Plan Assessment: Acute hypoxemic respiratory failure secondary to an acute exacerbation of systolic congestive heart failure Cardiomyopathy, with an ejection fraction of 25-30%. Likely a component of mild interstitial edema, based on the patient's chest x-ray, and N-terminal proBNP. Significant lower extremity edema, with cellulitis. Remains on cefazolin Rule out small airways disease, from previous tobacco use, of 20 years. Morbid obesity with a BMI of 44.8 kg per metered squared Plan: The patient was seen and evaluated Medications reviewed Remains on oral diuretics Remains on cefazolin per ID service Lovenox for DVT prophylaxis Stable and on room air We will continue to follow This patient was seen independently by the nurse practitioner I have personally seen and examined the patient, performed the documentation and the assessment and plan as written. Number of minutes spent on the visit: 22.
[2023-08-17 08:06] VITALS: BP 112/69; PULSE 75; RESP 18
[2023-08-17] MEDS: acetaZOLAMIDE 250 MG TAB PO SCH (08:16)
[2023-08-17] MEDS: carvediloL 6.25 MG TAB PO SCH (08:17)
[2023-08-17] MEDS: SACUBITRIL/VALSARTAN 24 MG-26 MG TABLET PO SCH (08:17)
[2023-08-17] MEDS: FUROSEMIDE 40 MG TAB PO SCH (08:17)
[2023-08-17] MEDS: SPIRONOLACTONE 25 MG TAB PO SCH (08:18)
[2023-08-17] MEDS: GABAPENTIN 100 MG CAP PO SCH (08:18)
[2023-08-17] MEDS: ENOXAPARIN 40 MG/0.4 ML SYRINGE SQ SCH (08:23)
[2023-08-17 10:34] LABS: BUN/Creat Ratio 17.93 Ratio (12.00-20.00); Blood Urea Nitrogen 25.1 mg/dL (9.0-27.0); Calcium 9.4 mg/dL (8.7-10.3); Carbon Dioxide 29.1 mmol/L (21.6-31.8); Chloride 100 mmol/L (96-109); Glucose 133 mg/dL (70-110); Potassium 4.7 mmol/L (3.5-5.5); Sodium 140 mmol/L (135-145)
--- NOTE | 2023-08-17 11:19 | P.PN ---
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 Continue Entresto 24/26 mg twice a day Continue treatment for lower extremity cellulitis Continue Coreg 6.25 mg twice daily for blood pressure control Monitor I&O, daily weights, electrolytes and renal function HPI Patient presented with worsening lower extremity edema for one month with worsening redness and cellulitis and scrotal edema 08/14 Echocardiogram reveals severe LV dysfunction with EF of 25-30% with increased LV mass, dilated IVC. Results reviewed with the patient. He states he has not had any problems with blood pressure in the past. He is currently on a Lasix drip continues to have lower extremity edema and erythema bilaterally. Patient complains of pain in the bilateral legs. Blood pressure readings remain elevated despite medication changes. Creatinine 1.16, potassium 4. 08/15 Patient continues to have significant lower extremity edema and erythema which is slowly improving. Patient denies having any shortness of breath. He still has pain to the lower extremities. He is in a negative fluid balance. Stat blood work is been ordered and not available at the time of this dictation. Blood pressure readings are improving. Blood pressure 129/83, heart rate 88, pulse ox 94% on 2 L nasal cannula. 08/16 The patient is seen today in follow-up. He continues to have severe pain in his legs with erythema and edema although improving. Yesterday she was started on Diamox. CO2 is 34. BUN 23 creatinine 1.9. Sodium 143, potassium 4.6. Patient remains on Lasix drip. He states his breathing is okay. 08/17 Patient is doing well from cardiac vessel standpoint. He is having a good urine output on current diuretic therapy. His kidney function has improved BUN trending down in stable creatinine 1.4. Hemodynamic stable systolic blood pressure and 14, diastolic 70, heart rate 75 beats a minute, normal sinus rhythm EXAMINATION: Breath sounds are clear to auscultation bilaterally Heart sounds are normal 2-3 plus lower extremity edema with erythema Objective - Vital Signs Vital signs: Vital Signs Temp 97.6 F 08/17/23 07:56 Pulse 75 08/17/23 07:56 Resp 18 08/17/23 07:56 BP 112/69 08/17/23 07:56 Pulse Ox 90 L 08/17/23 07:56 FiO2 Intake & Output 08/16/23 08/17/23 08/17/23 18:59 06:59 18:59 Intake Total 954 118 Output Total 1300 2100 Balance -346 -2100 118 Weight 134.8 kg Intake: Oral 954 118 Output: Urine 1300 2100 Other: Voiding Method Urinal Urinal - Labs CBC & Chem 7: 08/13/23 10:52 08/17/23 05:37 Labs: Abnormal Lab Results - Last 24 Hours (Table) 08/17/23 Range/Units 05:37 Glucose 133 H (70-110) mg/dL
--- NOTE | 2023-08-17 12:45 | P.PN ---
Subjective Progress Note Date: 08/17/23 Principal diagnosis: bilateral lower extremity cellulitis Patient is a 53-year-old male with a past medical history significant for hypertension presenting to the hospital for evaluation of increasing bilateral lower extremity swelling and also swelling to the scrotal and lower abdominal area patient also have erythema to the lower extremity concerning for cellulitis. On today's evaluation that is 08/17/2023, the patient denies any fever or any chills, the patient is breathing comfortably on room air , the patient denies chest pain, shortness of breath and no significant cough, patient denies abdominal pain, no nausea/vomiting or diarrhea, the patient bilateral lower extremity swelling redness has slightly decreased in no further drainage Patient did have a creatinine 1.4, no CBC was done today, blood cultures has been negative Objective - Vital Signs Vital signs: Vital Signs Temp 97.6 F 08/17/23 07:56 Pulse 75 08/17/23 07:56 Resp 18 08/17/23 07:56 BP 112/69 08/17/23 07:56 Pulse Ox 90 L 08/17/23 07:56 FiO2 Intake & Output 08/16/23 08/17/23 08/17/23 18:59 06:59 18:59 Intake Total 954 118 Output Total 1300 2100 Balance -346 -2099 118 Weight 134.8 kg Intake: Oral 954 118 Output: Urine 1300 2100 Other: Voiding Method Urinal Urinal - Exam GENERAL DESCRIPTION: middle-age male up in the chair in no distress RESPIRATORY SYSTEM: Unlabored breathing , decreased breath sounds at bases HEART: S1 S2 regular rate and rhythm , ABDOMEN: Soft , no tenderness EXTREMITIES: bilateral lower extremity swelling and redness has slightly decreased no significant drainage - Labs CBC & Chem 7: 08/13/23 10:52 08/17/23 05:37 Labs: Abnormal Lab Results - Last 24 Hours (Table) 08/17/23 Range/Units 05:37 Glucose 133 H (70-110) mg/dL Assessment and Plan (1) Bilateral lower leg cellulitis Current Visit: Yes Status: Acute Code(s): L03.116 - CELLULITIS OF LEFT LOWER LIMB; L03.115 - CELLULITIS OF RIGHT LOWER LIMB SNOMED Code(s): 025827583 Plan: 1patient presented to hospital with increasing bilateral lower extremity abdominal and scrotal swelling in this patient who did have evidence of fluid overload likely from a cardiac etiology he also have a component of erythema to bilateral extremity and some clear drainage and a possible component of cellulitis likely from gram-positive skin coy low risk factor for a gram- negative or MRSA infection 2-patient has shown clinical improvement as for his lower extremity cellulitis is concerned, patient to continue with cefazolin 2 g every 8 hours, however can be transitioned to oral Keflex on discharge Dictation was produced using [email or web address] dictation software. please excuse any gramm atical, word or spelling errors. Time with Patient: Less than 30
--- NOTE | 2023-08-17 14:35 | P.DS ---
Providers Date of admission: 08/13/23 17:15 Expected date of discharge: 08/17/23 Attending physician: Bj Tripathi Consults: 08/12/23 15:08 Consult Physician Routine Consulting Provider: Jose F Rico Consult Reason/Comments: chf Do you want consulting provider notified?: Yes 08/14/23 17:13 Consult Physician Routine Consulting Provider: Sinan Gregory Consult Reason/Comments: Cellulitis Do you want consulting provider notified?: Yes 08/14/23 17:18 Consult Physician Routine Consulting Provider: Neftaly aWrren Consult Reason/Comments: Abnormal CT chest Do you want consulting provider notified?: Yes [facility] Course: Chief Complaint: Increasing edema This is a pleasant 53-year-old patient follows with, Dr. Chalo Talley. Patient presents with one month of increasing lower extremity edema. Extremity getting worse. Patient slowly started getting also short of breath. Also note abdomen to get distended. Lower extremity started seeping. Some redness lower extremity skin with pain. No chest pain. Patient did have a computed tomography scan of the chest in November when patient is admitted. He was told he has a noninfectious pneumonitis. Diagnoses according to him was unclear. August 14: Admitted with acute CHF exacerbation. Low EF. Remains on IV Lasix drip. Strict I's and O's. Lower extremity cellulitis. Add IV Unasyn. Consult ID. Care was discussed with the patient. Being followed by cardiology. August 15: Remains on IV Lasix drip 10 mg an hour. About 3 L in negative fluid balance. Peripheral neuropathy painful. Neurontin increased to 200 mg twice a day. Discussed with patient. IV Ancef. ID following. Entresto started. Some decrease in edema. August 16: Today cardiology changed t over from Lasix drip to Lasix 120 mg twice a day. Lower extremity pain is better. On IV cefazolin. Also on Entresto. Aldactone. Diamox. About 6 L in negative fluid balance. Discussed with patient increase activity. Hopefully home tomorrow. August 17: Lower extremity edema coming down. On oral Lasix. Potential deep pain also better. Discharge medications discussed with the patient. Patient not to return to until follow-up with cardiology. Patient will follow-up with cardiology and ID. 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 No smoking or alcohol. No recreational drugs. Physical examination: VITAL SIGNS: 97.6, 75, 18, 112/69, 90% room air GENERAL: Up in a chair EYES: Pupils equal. Conjunctiva normal. HEENT: External appearance of nose and ears normal, oral cavity grossly normal. NECK: JVD not raised; masses not palpable. HEART: First and second heart sounds are normal; edema some improvement LUNGS: Respiratory rate normal; decreased breath sound. ABDOMEN: Soft, distended nontender, liver spleen not palpable, no masses palpable. PSYCH: Alert and oriented x3; mood and affect normal. MUSCULOSKELETAL:No Clubbing/cyanosis;muscles-grossly intact Lower extremity: Bilateral edema, some decrease. Redness and tenderness. Some skin breakdown. INVESTIGATIONS, reviewed in the clinical context: August 17: Potassium 4.7 creatinine 1.4 LDL 72 August 13: White count 9.5 hemoglobin 15.2 platelets 233 potassium 4.1 creatinine 1.1 Troponin I 0.020, 0.017, 0.019 ProBNP 1760 TSH 1.4 UA: Protein 1+ EKG tracing personally reviewed by me-normal sinus rhythm. Nonspecific ST-T wave changes. Chest x-ray film personally reviewed by me-interstitial prominence Venous Doppler bilateral lower extremity: Negative for DVT 2-D echocardiogram: Moderate concentric LVH. EF 25-30%. [id number] TR. Computed tomography scan abdomen and pelvis: Mild diffuse anasarca. Hepatic steatosis. Hydralazine CT chest: Diffuse mosaic groundglass a deterioration. Abdominal ultrasound: Mild fatty infiltration of liver. Assessment and plan: -Acute congestive heart exacerbation from systolic dysfunction EF 25-30%. No prior history of CAD.: Better Lasix 80 mg twice a day.. Fluid restriction 1800 mL. Low-sodium diet. Aldactone 25 mg a day. Coreg 6.25 mg twice a day Entresto Follow-up with cardiology next week -Acute lower extremity cellulitis: Better Silvadene cream with Kerlix and David wrap IV Ancef. ID following Discharge on Keflex 5 mg every 8-7 days -Morbid obesity BMI 44.8 Weight loss measures -Hepatic steatosis -Painful peripheral neuropathy: Better Neurontin 300 mg daily at bedtime -Abnormal CT chest Seen by pulmonary Dr. Warren. Follow-up outpatient with Dr. Warren -Full code Disposition: Home - Plan - Discharge Summary Discharge Rx Participant: Yes New Discharge Prescriptions: New Sacubitril/Valsartan [Entresto 24 mg-26 mg Tablet] 1 each PO BID #60 tablet Spironolactone [Aldactone] 25 mg PO DAILY #30 tab carvediloL [Coreg] 6.25 mg PO BID-W/MEALS #60 tab Cephalexin [Keflex] 500 mg PO Q8HR #21 cap SILVER sulfADIAZINE CREAM [Silvadene Cream] 1 applic TOPICAL BID each Gabapentin [Neurontin] 300 mg PO HS #30 cap Furosemide [Lasix] 80 mg PO BID@0900,1600 #120 tab Continue Albuterol Inhaler [Ventolin Hfa Inhaler] 2 puff INHALATION RT-QID PRN #1 each PRN Reason: Shortness Of Breath Or Wheezing No Action Furosemide [Lasix] 20 mg PO DIRECTED Discharge Medication List Albuterol Inhaler [Ventolin Hfa Inhaler] 2 puff INHALATION RT-QID PRN #1 each 12/24/22 [Rx] Furosemide [Lasix] 20 mg PO DIRECTED 08/12/23 [History] Sacubitril/Valsartan [Entresto 24 mg-26 mg Tablet] 1 each PO BID #60 tablet 08/14/23 [Rx] Cephalexin [Keflex] 500 mg PO Q8HR #21 cap 08/17/23 [Rx] Furosemide [Lasix] 80 mg PO BID@0900,1600 #120 tab 08/17/23 [Rx] Gabapentin [Neurontin] 300 mg PO HS #30 cap 08/17/23 [Rx] SILVER sulfADIAZINE CREAM [Silvadene Cream] 1 applic TOPICAL BID each 08/17/23 [Rx] Spironolactone [Aldactone] 25 mg PO DAILY #30 tab 08/17/23 [Rx] carvediloL [Coreg] 6.25 mg PO BID-W/MEALS #60 tab 08/17/23 [Rx] Follow up Appointment(s)/Referral(s): Chavez Felipe MD [Medical Doctor] - 1 Week Chalo Lopez DO [Primary Care Provider] - 1-2 days Sinan Gregory MD [STAFF PHYSICIAN] - 1 Week Activity/Diet/Wound Care/Special Instructions: fluid restrict 1800 cc/day
== END 2023-08-17 15:43 | disposition home or self-care (01) | DRG 291 ==
LOC: EC 12:01 → 6NMEDSUR 15:10 → OBSVTOIN 08-13 17:15
PROVIDERS: ADMIT Hospitalist; ATTEND Hospitalist
DX: I11.0 Hypertensive heart disease with heart failure (principal); I50.23 Acute on chronic systolic (congestive) heart failure; J96.01 Acute respiratory failure with hypoxia; Z68.41 Body mass index [BMI] 40.0-44.9, adult; L03.115 Cellulitis of right lower limb; L03.116 Cellulitis of left lower limb; I42.9 Cardiomyopathy, unspecified; E66.01 Morbid (severe) obesity due to excess calories; K76.0 Fatty (change of) liver, not elsewhere classified; J45.909 Unspecified asthma, uncomplicated; N50.89 Other specified disorders of the male genital organs; I87.8 Other specified disorders of veins; J98.4 Other disorders of lung; G62.9 Polyneuropathy, unspecified; M79.89 Other specified soft tissue disorders; R12 Heartburn; Z87.891 Personal history of nicotine dependence; Z28.310 Unvaccinated for COVID-19; Z79.899 Other long term (current) drug therapy; Z79.891 Long term (current) use of opiate analgesic; Z82.49 Family history of ischemic heart disease and other diseases of the circulatory system; Z82.5 Family history of asthma and other chronic lower respiratory diseases
CPT/HCPCS: 36415; 71046; 71250; 74177; 76705; 80048; 80053; 80061; 81001; 82140; 83036; 83690; 83735; 83880; 84100; 84443; 84484; 85025; 85379; 85610; 85730; 87040; 93005; 93306; 93970; 96374; 96375; 96376; 99285